=== PATIENT | female | born 1950 | race Caucasian/White ===

== ENCOUNTER 2017-02-07 09:42 | Inpatient (IN) | payer BC, MEDICARE ==
[2017-02-07] MEDS ORDERED: methylPREDNISolone 125 MG* 2 ML VIAL IV ONE (09:44)
[2017-02-07] MEDS: Albuterol/Ipratropium NEB.SOL* Albuterol 2.5 MG/Ipratropium 0.5 MG 3 ML INH SCH ×6 (10:05→23:57)
[2017-02-07 10:13] LABS: Hematocrit 35 % (35-47); Hemoglobin 10.6 g/dl (12.0-16.0); Mean Corpuscular HGB Conc 30 g/dl (31-36); Mean Corpuscular Hemoglobin 22 pg (27-31); Mean Platelet Volume 9 um3 (7.4-10.4); Red Blood Count 4.92 10^6/ul (4.0-5.4); Red Cell Distribution Width 20 % (10.5-15); White Blood Count 9.3 10^3/ul (3.5-10.8)
[2017-02-07 10:17] LABS: Comments Flag Yes
[2017-02-07 10:18] LABS: Mean Corpuscular Volume 72 fL (80-97)
[2017-02-07 10:18] LABS: FIO2 5
[2017-02-07 10:21] LABS: PCO2 Arterial 68 mmHg (35-45)
[2017-02-07 10:29] LABS: Albumin 3.5 g/dL (3.2-5.2); BUN/Creatinine Ratio 59.7 (8-20); C Reactive Protein 112.63 mg/L (< 5.00); Calcium 9.3 mg/dL (8.6-10.3); EGFR African American 123.9 (>60); EGFR Non-African American 96.3 (>60); Globulin 3.3 g/dL (2-4); Potassium 4.6 mmol/L (3.5-5.0); Total Bilirubin 0.3 mg/dL (0.2-1.0); Total Protein 6.8 g/dL (6.4-8.9)
[2017-02-07 10:31] LABS: Troponin I 0.03 ng/mL (<0.04)
[2017-02-07] MEDS ORDERED: Albuterol 2.5 MG/3 ML NEB.SOL* (0.083%) INH PRN (11:26)
[2017-02-07] MEDS ORDERED: NS 0.9% 1000 ML* 2,000 ML IV ONE (11:26)
[2017-02-07] MEDS ORDERED: Acetaminophen TAB* 325 MG PO PRN (11:26)
[2017-02-07] MEDS ORDERED: Ondansetron INJ* 2 MG/ML VIAL IV PRN (11:26)
[2017-02-07] MEDS ORDERED: NS 0.9% 1000 ML* 1,000 ML IV SCH (11:30)
[2017-02-07] MEDS ORDERED: cefTRIAXone(*) 1 GM ADVAN/BAG ONE (11:34)
[2017-02-07] MEDS: cefTRIAXone VIAL(*) 1,000 MG in NS 0.9% 50 ML* 50 ML IVPB SCH (11:38)
--- NOTE | 2017-02-07 11:46 | RAD ---
INDICATION: Short of breath COMPARISON: June 24, 2015 TECHNIQUE: An AP portable view obtained at 1103 hours is submitted. FINDINGS: Bones/Soft Tissues: There are no acute bony findings. Cardiomediastinal: The cardiomediastinal silhouette is normal. Lungs: There are no infiltrates. There is mild hyperinflation Pleura: There are no pleural effusions. Other: None IMPRESSION: HYPERINFLATION. NO ACTIVE DISEASE.
[2017-02-07 11:49] LABS: EPAP 6; FIO2 40; IPAP 14
[2017-02-07 12:01] LABS: PCO2 Arterial 72 mmHg (35-45)
[2017-02-07] MEDS ORDERED: Morphine INJ* 4 MG/ML 1 ML CARPUJECT IV ONE (12:09)
[2017-02-07] MEDS ORDERED: LORazepam INJ* 2 MG/ML 1 ML VIAL IV PUSH ONE (14:19)
--- NOTE | 2017-02-07 14:19 | PN ---
Progress Note - Progress Note Date of Service: 02/07/17 Note: CRITICAL CARE MEDICINE Date: 02/07/17 Time: 1300 Patient seen and discussed with INSTRUCTOR PRIVATE. Agree with DIONISIO Cruz's findings and assessment. Pt states she has felt run down for about a week. Thought she might have the flu. No home O2. still smokes. Lives with family and no one else sick. Did feel some chills at home. no fever. nonproductive cough. no cp. PHYSICAL EXAM: Vital Signs: Reviewed. Neurologic: awake, communiating. mild distress HEENT: pupils equal. Sclera anicteric. Noninjected. mm dry. Trachea midline. Cardiovascular: S1 S2 tachy Respiratory: soft wheezes bl; does have egophony at left base Abdomen: Soft, nt. No r/g/r. Extremities: Warm. thin. Access: piv LABS: Reviewed. IMAGING: Reviewed. MEDICATIONS: Reviewed. ASSESSMENT/PLAN: 66F Acute hypoxic and hypercarbic resp failure - bipap. morphine early to allow exhalation phase. steroids, nebs. Copd exac - Likely viral trigger; need a few hours on bipap to allow time for steroids to work. Tx for cap on admission - tx for sepsis associated with this, but not dysregulated sepsis at this point. flu neg. Mildly intravsascular dry and repleted with fluids in ED. Pt expressed understanding. Further plan and care per INSTRUCTOR PRIVATE's note and orders. Supportive and preventative care as ordered. Disposition: ICU, Level 2 Code Status: Full Critical Care Time: 35 min Amanda Galvan DO
[2017-02-07] MEDS ORDERED: LORazepam INJ* 2 MG/ML 1 ML VIAL IV PUSH PRN (14:20)
--- NOTE | 2017-02-07 15:12 | HP ---
CC: Dr. Leary * HISTORY AND PHYSICAL: DATE OF ADMISSION: 02/07/17 PRIMARY CARE PROVIDER: Dr. Leary. ATTENDING PHYSICIAN WHILE IN THE HOSPITAL: Dr. Gerry Galvan * (Report dictated by Marshal Cruz NP). CHIEF COMPLAINT: 1. Cough. 2. Shortness of breath. HISTORY OF PRESENT ILLNESS: Mrs. Carpenter is a 66-year-old female patient. She has a history of COPD. She is still smoking. She has a history of ulcerative colitis, history of SBO in the past, and a history of arthritis. She states that over the last week she started out feeling congested, having runny nose, feeling like she had a cold, but over the last week she has had progressive worsening shortness of breath, worsening cough, she has been bringing up clear to white sputum at times. She denies any weight gain or any swelling of the lower extremities. She says that her appetite has been decreased over the last few days. She denies having any chest pain. She said she has been more short of breath, particularly with exertion and even at rest. She was concerned because her symptoms just were not getting any better. So, she decided to come into our ER today to be evaluated. She denies any chest pain. She says that she did not have any chills and no recent sick contacts, and denies feeling as if she has been aching all over. She came into the ED. It was noted, when she came in, she appeared to be tachypneic in the 30s. Her O2 sats were 94% on 5 L. She was placed on BiPAP due to her work of breathing. She was noted to have a fever here. She was noted to have a left shift on a differential and there was concern for COPD exacerbation and we were asked to evaluate for admission. PAST MEDICAL HISTORY: Significant for: 1. COPD. 2. Ulcerative colitis. 3. History of SBO in the past. 4. Arthritis. PAST SURGICAL HISTORY: 1. The patient has had an ileostomy. 2. She has had a total colectomy. 3. She has had knee surgery. MEDICATIONS: The home meds according to the list that she provided includes: 1. Trazodone 50 mg at bedtime as needed. 2. Symbicort 2 puffs inhaled b.i.d. 3. Ventolin 2 puffs inhaled every 4 hours as needed. ALLERGIES TO MEDICATIONS: Include no known drug allergies. FAMILY HISTORY: Her mother had a history of diabetes and hypertension and history of colon cancer. The father had a history of emphysema. SOCIAL HISTORY: She is still smoking about a pack a day. She has been smoking for about 50 years. She does not drink alcohol. She lives with her children. Surrogate decision maker is her daughter. REVIEW OF SYSTEMS: There was no documented fever at home. There is one here today. She denied having any double vision, no ear discharge. She denies having any rhinorrhea. No sore throat. No thyroid enlargement. She denied having any chest pain. There was no orthopnea. Dyspnea on exertion and sometimes dyspnea at rest. There was no abdominal pain. No nausea. No vomiting. No dysuria. No frequency. There was no seizure. No loss of consciousness. No pruritus and no skin ulcerations. Review of 14 systems completed, all others are negative. PHYSICAL EXAMINATION GENERAL: At this time, Mrs. Carpenter is a 66-year-old female patient. She is sitting in the ER stretcher. She does appear to be in a [id number] amount of respiratory distress. VITAL SIGNS: Blood pressure 107/71, pulse 111, respirations 29, O2 sat 93%, she is on 40% on a BiPAP, and her temperature is 101.5. HEENT: Head atraumatic and normocephalic. Eyes: EOMs are intact. Sclerae are anicteric and not pale. Throat: Oral mucosa appears to be dry. No oropharyngeal erythema. NECK: Supple. LUNGS: She was noted to be wheezing throughout. She had some rhonchi in the upper lobe. She had equal diaphragmatic expansion. HEART: Sounds S1, S2. Regular rate and rhythm. She is tachycardic. ABDOMEN: Her abdomen was soft and flat. She had an ileostomy. Again, the stoma does not appear to be dusky. EXTREMITIES: Pulses were 2+ throughout. She has no peripheral edema. She is moving all 4 extremities with 5/5 strength. NEUROLOGIC: She is awake, alert, oriented x3. Tongue midline. [place] Press Operator are equal. She had no gross focal deficits. SKIN: Intact. DIAGNOSTIC STUDIES/LAB DATA: WBC of 9.3, RBC of 4.92, hemoglobin 10.6, hematocrit 35, platelet count of 160. Blood gas: pH is 7.27, pCO2 is 68, the pO2 is 81, and the bicarb was 27. The sodium was 136, potassium of 4.6, chloride of 100, bicarb is 30, BUN 36, creatinine 0.62, glucose 163. Her lactate is 0.8, calcium 9.3. Total bili 0.3, AST 22, ALT 11, alk phos 58. CK 163, CK-MB 6.4. Troponin 0.03. CRP was 112 and albumin was 3.5. Serology was negative for flu. She had an EKG obtained today and on my review appears to be in sinus tachycardia at a rate of 117. She did have, what appears to be, a PV. There does appear to be some artifact, but there was no gross ST elevations or T-wave inversions. No previous EKG for comparison. She had a chest x-ray obtained today, awaiting official report. On my read, I do not appreciate any obvious infiltrate. She may have something retrocardiac, but no gross infiltrates noted on this one view. No signs of pulmonary edema. Old medical records were reviewed. ASSESSMENT AND PLAN: Mrs. Carpenter is a 66-year-old female patient coming into the ED today with complaints of cough, progressive worsening shortness of breath over the last week, now found to be febrile and found to have what appears to be a left shift on her differential. She will be admitted under inpatient status for: 1. Chronic obstructive pulmonary disease exacerbation with possible underlying pneumonia and signs of sepsis as evidenced by she is tachycardic, she was tachypneic, and she had a fever of 101.5 here. Plan: At this point she had blood cultures already. Her first lactic was normal. We will get another one at 2:30 today. I will give her 2 L of fluid wide open now, then normal saline at 100 an hour and we will start her on azithromycin and Rocephin. This still could be a viral illness, but again given the fact that she has chronic obstructive pulmonary disease and she required BiPAP, I think she requires antibiotics given she was febrile and has a left shift, and her CRP is quite elevated. I will continue the BiPAP. I did touch base with our yield improvement engineer, who will be evaluating the patient. I am going to get her on aggressive pulmonary toileting and further evaluation. In addition to this, place her on nebs, steroids and try to get a sputum culture and we will get Legionella antigen and Strep pneumoniae antigen. 2. Chronic obstructive pulmonary disease with exacerbation. Again we will put her on steroids, nebs, aggressive pulmonary toileting, and we will continue the BiPAP. We will try to liberate her from this, may be down to Vapotherm today and then slowly wean her off as the nebs and steroids start to help with bronchodilation, and we will continue to follow. 3. History of ulcerative colitis and history of small bowel obstruction. At this point, she does appear to be dehydrated. So, I will be aggressive with the fluids, normal saline 2 L now, then at 100 an hour. She is n.p.o., put her on clears once I know her respiratory status is stable. In terms of her ulcerative colitis, it appears to be stable at this point. 4. Arthritis. Continue with supportive care. 5. DVT prophylaxis. She is high risk. I did place her on heparin subcu. 6. Code status: Full code. 7. Fluids, electrolytes, and nutrition: She is n.p.o. Once we can liberate her from BiPAP, I will consider starting her on clears to a regular diet. TIME SPENT: Time spent on the admission was approximately 60 minutes. Greater than half the time was spent face to face with the patient obtaining my history and physical, the other half time spent going over the plan of care with the patient, implementing plan of care. I did discuss the plan of care with my attending, Dr. Galvan, he is in agreement. MARSHAL CRUZ, DIONISIO [id number]/[facility] #: [id number] SVITLANA
[2017-02-07] MEDS: Heparin VIAL(*) 5000 UNITS/ML VIAL (FIVE THOUSAND) SUBCUT SCH ×2 (17:00→21:12)
--- NOTE | 2017-02-07 17:24 | ED ---
Ruben Bernal Angela, scribed for Pilo Mendez MD on 02/07/17 at 1041 . Shortness of Breath - HPI Summary HPI Summary: This pt is a 66 y/o female presenting to [facility] c/o SOB for 2 days. Pt reports she had the flu for the last 1 week, which has worsened over the last 2 days. Pt c/o cough, sore throat and increasing SOB. EMS state her O2 saturations were in the 50s upon arrival to her home. She is not on home oxygen. Per EMS, Pt placed on 4L NC which increased her saturation to the 90s. Per nurse's note, upon arrival O2 saturation 94% on 5L NC. PMHx includes COPD. Pt is a current smoker. - History of Current Complaint Time Seen by Provider: 02/07/17 09:43 Hx Obtained From: Patient Onset/Duration: Lasting Days, Still Present Timing: Constant Dyspnea At: Rest Alleviating Factors: EMS Tx, Oxygen Associated Signs & Symptoms: Cough (Nonproductive) - Allergy/Home Medications Allergies/Adverse Reactions: Allergies Allergy/AdvReac Type Severity Reaction Status Date / Time No Known Allergies Allergy Verified 08/24/15 08:37 PMH/Surg Hx/FS Hx/Imm Hx Respiratory History: Reports: Hx Chronic Obstructive Pulmonary Disease (COPD) GI History: Reports: Other GI Disorders - ulcerative colitis, s/p colostomy at age 20 - Cancer History Hx Chemotherapy: No Hx Radiation Therapy: No - Surgical History Surgery Procedure, Year, and Place: colostomy 1971 Infectious Disease History: No Infectious Disease History: Denies: Traveled Outside the [place] in Last 30 Days - Family History Known Family History: Positive: Hypertension - mother, Diabetes - mother, Other - Mother: colon CA. Father: emphysema. - Social History Alcohol Use: None Substance Use Type: Reports: None Smoking Status (MU): Heavy Every Day Tobacco Smoker Type: Cigarettes Amount Used/How Often: 1/2 ppd Have You Smoked in the Last Year: Yes Review of Systems Negative: Fever, Chills Eyes: Negative Positive: Sore Throat Positive: Shortness Of Breath, Cough Skin: Negative Neurological: Negative All Other Systems Reviewed And Are Negative: Yes Physical Exam - Summary Physical Exam Summary: VITAL SIGNS: Reviewed. GENERAL: Patient is a well-developed and nourished female who is lying comfortable in the stretcher. HEAD AND FACE: No signs of trauma. No ecchymosis, hematomas or skull depressions. No sinus tenderness. EYES: PERRLA, EOMI x 2, No injected conjunctiva, no nystagmus. EARS: Hearing grossly intact. Ear canals and tympanic membranes are within normal limits. MOUTH: Oropharynx within normal limits. NECK: Supple, trachea is midline, no adenopathy, no JVD, no carotid bruit, no c- spine tenderness, neck with full ROM. CHEST: Symmetric, no tenderness at palpation LUNGS: Pt has decreased breath sounds. CVS: Regular rate and rhythm, S1 and S2 present, no murmurs or gallops appreciated. ABDOMEN: Soft, non-tender. No signs of distention. No rebound no guarding, and no masses palpated. Bowel sounds are normal. EXTREMITIES: FROM in all major joints, no edema, no cyanosis or clubbing. NEURO: Alert and oriented x 3. No acute neurological deficits. Speech is normal and follows commands. SKIN: Dry and warm Triage Information Reviewed: Yes Vital Signs On Initial Exam: Initial Vitals Temp Pulse Resp BP Pulse Ox 101.5 F 115 30 131/52 94 02/07/17 09:49 02/07/17 09:49 02/07/17 09:49 02/07/17 09:49 02/07/17 09:49 Vital Signs Reviewed: Yes - [place] Coma Scale Coma Scale Total: 15 Diagnostics - Vital Signs Vital Signs Temp Pulse Resp BP Pulse Ox 02/07/17 10:23 112 31 129/52 93 02/07/17 10:05 116 38 95 02/07/17 10:00 116 31 94 02/07/17 09:56 114 32 94 02/07/17 09:49 101.5 F 115 30 131/52 94 - Laboratory Lab Results: Lab Results 02/07/17 02/07/17 02/07/17 Range/Units 10:01 10:01 10:13 WBC 9.3 (3.5-10.8) 10^3/ul RBC 4.92 (4.0-5.4) 10^6/ul Hgb 10.6 L (12.0-16.0) g/dl Hct 35 (35-47) % MCV 72 L (80-97) fL MCH 22 L (27-31) pg MCHC 30 L (31-36) g/dl RDW 20 H (10.5-15) % Plt Count 160 (150-450) 10^3/ul MPV 9 (7.4-10.4) um3 Neut % (Auto) 86.1 H (38-83) % Lymph % (Auto) 5.0 L (25-47) % [place] % (Auto) 8.3 (1-9) % Eos % (Auto) 0 (0-6) % Baso % (Auto) 0.6 (0-2) % Absolute Neuts (auto) 8.0 H (1.5-7.7) 10^3/ul Absolute Lymphs (auto) 0.5 L (1.0-4.8) 10^3/ul Absolute Monos (auto) 0.8 (0-0.8) 10^3/ul Absolute Eos (auto) 0 (0-0.6) 10^3/ul Absolute Basos (auto) 0.1 (0-0.2) 10^3/ul Absolute Nucleated RBC 0.01 10^3/ul Nucleated RBC % 0.1 Patient Temperature Not Reportable ABG pH 7.27 L (7.35-7.45) ABG pH (Temp Correct) Not Reportable ABG pCO2 68 H (35-45) mmHg ABG pCO2 (Temp Corrct Not Reportable ABG pO2 81 (80-100) mmHg ABG pO2 (Temp Correct Not Reportable ABG HCO3 27.2 (19-31) mmol/L ABG O2 Saturation 97.4 (95-98) % ABG Base Excess 3.0 H (-2.0-2.0) Respiration Rate Not Reportable O2 Delivery Device n/c Ventilator Type Not Reportable Vent Mode Not Reportable FiO2 5 Inspiratory Time Not Reportable PEEP Not Reportable Pressure Support Not Reportable Pressure Control Not Reportable EPAP Not Reportable IPAP Not Reportable BiPAP Not Reportable Lactic Acid 0.8 (0.5-2.0) mmol/L Result Diagrams: 02/07/17 10:01 02/07/17 10:01 Lab Statement: Any lab studies that have been ordered have been reviewed, and results considered in the medical decision making process. - Radiology Chest XR Xray Interpretation: Positive (See Comments) - IMPRESSION: Hyperinflation. No active disease. ED physician has reviewed this radiology report and agrees. Radiology Interpretation Completed By: Radiologist - EKG 0985 Cardiac Rate: Tachycardia EKG Rhythm: Sinus Rhythm - at 117 bpm EKG Interpretation: No ST elevation Course/Dx - Course Assessment/Plan: This pt is a 66 y/o female presenting to [facility] c/o SOB for 2 days. Pt reports she had the flu for the last 1 week, which has worsened over the last 2 days. Pt c/o cough, sore throat and increasing SOB. EMS state her O2 saturations were in the 50s upon arrival to her home. She is not on home oxygen. Per EMS, Pt placed on 4L NC which increased her saturation to the 90s. Per nurse's note, upon arrival O2 saturation 94% on 5L NC. PMHx includes COPD. Pt is a current smoker. Test results without any significant abnormalities, except for BUN of 37, CRP of 112.6, ABG pH 7.23, pCO2 of 68, pO2 of 81, O2 saturation of 97.4. Chest XR shows Hyperinflation. No active disease. In the ED course the pt was given IV fluids, solu-Medrol, Duonebs, and was placed on Bipap. At this point I discussed the test results and findings with Dr. Paris, hospitalist, who accepted the pt for admission. Pt is hemodynamically stable, alert and oriented x3. - Diagnoses Differential Diagnosis/HQI/PQRI: Positive: Asthma, CHF, COPD Exacerbation, Pneumonia Provider Diagnoses: COPD exacerbation, Hypercapnia - Physician Notifications Discussed Care of Patient With: Ines Paris Time Discussed With Above Provider: 10:53 Instructed by Provider To: Other - I discussed pt care with Dr. Paris, who has agreed to admit the pt. Discharge - Discharge Plan Condition: Stable Disposition: ADMITTED TO [facility] documentation as recorded by the Ruben tai Angela accurately reflects the service I personally performed and the decisions made by , Pilo Mendez MD.
[2017-02-07] MEDS: Azithromycin IV(*) 500 MG in D5W 250 ML BAG* 250 ML IVPB SCH ×3 (17:25→17:29)
[2017-02-07] MEDS: Azithromycin IV(*) 500 MG in NS 0.9% 250 ML* 250 ML IVPB SCH (17:32)
[2017-02-07] MEDS: methylPREDNISolone 125 MG* 2 ML VIAL IV SCH (19:01)
[2017-02-07] MEDS: Mometasone/Formoter 200/5 MDI INH SCH (19:55)
[2017-02-07 20:09] LABS: Urine Bacteria Absent (Absent); Urine Bilirubin Negative (Negative); Urine Glucose Negative (Negative); Urine Nitrite Negative (Negative)
[2017-02-07] MEDS: Morphine INJ* 2 MG/ML 1 ML SYRINGE (TWO MG - NEW SYRINGE VERSION) IV PRN (22:09)
[2017-02-07 22:55] LABS: EPAP 10; FIO2 60; IPAP 18
[2017-02-07 23:02] LABS: PCO2 Arterial 85 mmHg (35-45)
[2017-02-07] MEDS ORDERED: Succinylcholine* 20 MG/ML 10 ML VIAL ONE ×2 (23:16→23:34)
[2017-02-07] MEDS ORDERED: Etomidate* 2 MG/ML 20 ML VIAL (40 MG) ONE (23:34)
[2017-02-07] MEDS ORDERED: Propofol* 100 ML ONE (23:41)
--- NOTE | 2017-02-07 23:49 | PN ---
Progress Note - Progress Note Date of Service: 02/07/17 Note: Nursing reported increased lethargy on BiPap. Repeat blood gas shows worsening hypercapneic respiratory failure. She is a full code and so intubation was performed, please see separate note.
--- NOTE | 2017-02-07 23:56 | PN ---
Progress Note - Progress Note Date of Service: 02/07/17 Note: INTUBATION PROCEDURE NOTE INDICATION: progressive hypercapneic respiratory failure failed BiPap PHYSICIAN: Lorenzo Cee II, MD CONSENT: The procedure was performed emergently and the permission was implied because of the emergent nature. PROCUDURE SUMMARY: My hands were washed immediately prior to the procedure. [place] precautions were practiced. The patient was on a harness and bag inspector including continuous pulse oximetry. Integrity of endotracheal tube balloon was demonstrated. Rapid sequence intubation was conducted. The patient received 20mg etomidate & 100mg succinyl choline for adequate paralysis. Using a Glidescope and size 8 endotracheal tube with stylet, the patient was intubated on the first attempt. The stylet was removed and cuff balloon was inflated. Appropriate endotracheal tube position was confirmed by direct visualization of vocal cord passage, fogging of the tube, CO2 colometric indicator and symmetric breath sounds. The tube was secured 22cm at the lips. Post intubation chest x- ray confirmed appropriate placement.
[2017-02-08] MEDS ORDERED: DEXMEDETOMIDINE IVPB SCH (00:19)
[2017-02-08] MEDS ORDERED: D5W IVPB SCH (00:19)
[2017-02-08] MEDS: Propofol* 1000 MG (10 MG/ML 100 ml) @ Per Protocol (in ICU Pyxis) IV SCH ×3 (00:50→14:14)
[2017-02-08] MEDS: methylPREDNISolone 125 MG* 2 ML VIAL IV SCH ×3 (01:31→18:12)
[2017-02-08 01:34] LABS: FIO2 60; Resp Rate 14; Ventilator Volume 400
[2017-02-08 01:40] LABS: PCO2 Arterial 76 mmHg (35-45)
[2017-02-08] MEDS ORDERED: NS 0.9% 1000 ML* 1,000 ML IV ONE (03:45)
[2017-02-08 03:51] LABS: FIO2 55; Resp Rate 20; Ventilator Volume 450
[2017-02-08 03:54] LABS: PCO2 Arterial 57 mmHg (35-45)
[2017-02-08] MEDS: Albuterol/Ipratropium NEB.SOL* Albuterol 2.5 MG/Ipratropium 0.5 MG 3 ML INH SCH ×6 (04:00→23:35)
[2017-02-08] MEDS: Heparin VIAL(*) 5000 UNITS/ML VIAL (FIVE THOUSAND) SUBCUT SCH ×3 (05:26→22:13)
[2017-02-08 07:24] LABS: Hematocrit 27 % (35-47); Hemoglobin 8.1 g/dl (12.0-16.0); Mean Corpuscular HGB Conc 30 g/dl (31-36); Mean Corpuscular Hemoglobin 22 pg (27-31); Mean Platelet Volume 9 um3 (7.4-10.4); Red Blood Count 3.75 10^6/ul (4.0-5.4); Red Cell Distribution Width 20 % (10.5-15); White Blood Count 6.1 10^3/ul (3.5-10.8)
[2017-02-08 07:29] LABS: Comments Flag Yes; Mean Corpuscular Volume 72 fL (80-97)
[2017-02-08 07:39] LABS: BUN/Creatinine Ratio 47.9 (8-20); Calcium 8.4 mg/dL (8.6-10.3); EGFR African American 105.9 (>60); EGFR Non-African American 82.4 (>60); Potassium 4.6 mmol/L (3.5-5.0)
--- NOTE | 2017-02-08 07:41 | RAD ---
HISTORY: Intubation, COPD exacerbation COMPARISONS: February 07, 2017 at 10:57 AM VIEWS: 1: frontal portable view of the chest at 11:45 PM FINDINGS: LINES AND TUBES: An endotracheal tube is noted with the tip overlying the trachea between the clavicles and the mandy. A gastric tube is noted. The tip is below the [id number] of the current examination, but is below the diaphragm. CARDIOMEDIASTINAL SILHOUETTE: The cardiomediastinal silhouette is normal for portable technique. PLEURA: The costophrenic angles are sharp. No pleural abnormalities are noted. LUNG PARENCHYMA: There is hyperinflation. ABDOMEN: The upper abdomen is clear. There is no subphrenic gas. BONES AND SOFT TISSUES: No bone or soft tissue abnormalities are noted. IMPRESSION: LINES AND TUBES ABOVE. NO ACTIVE CARDIOPULMONARY DISEASE.
[2017-02-08] MEDS: cefTRIAXone VIAL(*) 1,000 MG in NS 0.9% 50 ML* 50 ML IVPB SCH (11:00)
--- NOTE | 2017-02-08 11:18 | PN ---
Progress Note - Progress Note Date of Service: 02/08/17 Note: CRITICAL CARE MEDICINE Date: 02/08/17 Time: 1040 SUBJECTIVE: Patient seen and examined. events reviewed with hospitalist overnight. PHYSICAL EXAM: Vital Signs: Reviewed. stable. Neurologic: Rass -4 HEENT: pupils equal. Sclera anicteric. ett in place Cardiovascular: S1 S2 reg Respiratory: soft wheezes bl; sync with vent on vol and changed to pressure Abdomen: Soft, nt. No r/g/r. ostomy stable with mild skin irritation Extremities: Warm. Access: piv LABS: Reviewed. IMAGING: Reviewed. no infiltrate MEDICATIONS: Reviewed. ASSESSMENT: 66F Acute hypoxic and hypercarbic resp failure Copd exac - Likely viral trigger Tx for cap on admission Anemia sec to chronic disease h/o UC; ostomy PLAN: Neurologic: lighten sedation. use precedex >prop and see if she can spon breath. prn morphine Cardiovascular: perfusing. vol status met. Respiratory: co2 corrected and maintaining but needs to awake and see how her phases of resp decide her course. may need a little more time now vented to overcome bronchoscpastic trigger and retention sec to copd exac. again, likely viral but abx for now. Gastrointestinal: start tf later/ sup Renal/Metabolic: f/u lytes. nina Infectious Disease: neg thusfar. C3/azith. flu neg Hematology: stable. Endocrine: steroids. Musculoskeletal: oob soon Psych/Social: will update family Supportive and preventative care as ordered. SUP: H2 VTE prophylaxis: heparin Nina catheter given critical illness, monitoring needs for accurate assessment of MARIAH and KDIGO criteria for critically ill patients and to avoid potential harms of urinary retention, skin breakdown/ulcers. Disposition: ICU Code Status: Full Critical Care Time: 35min Amanda Galvan DO
[2017-02-08] MEDS: DEXMEDETOMIDINE IVPB SCH (12:23)
[2017-02-08] MEDS: D5W IVPB SCH (12:23)
[2017-02-08] MEDS: Azithromycin IV(*) 500 MG in NS 0.9% 250 ML* 250 ML IVPB SCH (12:23)
[2017-02-08] MEDS: Mometasone/Formoter 200/5 MDI INH SCH ×2 (13:24→19:47)
[2017-02-09] MEDS: Propofol* 1000 MG (10 MG/ML 100 ml) @ Per Protocol (in ICU Pyxis) IV SCH ×2 (00:29→03:50)
[2017-02-09] MEDS: Chlorhexidine MOUTHWASH 0.12%* 15 ML UDC SWISH SPIT SCH ×2 (00:33→09:16)
[2017-02-09] MEDS: methylPREDNISolone 125 MG* 2 ML VIAL IV SCH ×2 (02:37→09:16)
[2017-02-09 04:22] LABS: Hematocrit 27 % (35-47); Hemoglobin 8.2 g/dl (12.0-16.0); Mean Corpuscular HGB Conc 31 g/dl (31-36); Mean Corpuscular Hemoglobin 22 pg (27-31); Mean Platelet Volume 10 um3 (7.4-10.4); Red Blood Count 3.77 10^6/ul (4.0-5.4); Red Cell Distribution Width 20 % (10.5-15); White Blood Count 8.3 10^3/ul (3.5-10.8)
[2017-02-09 04:24] LABS: Comments Flag Yes
[2017-02-09 04:25] LABS: Mean Corpuscular Volume 71 fL (80-97)
[2017-02-09 04:39] LABS: BUN/Creatinine Ratio 44.7 (8-20); Blood Urea Nitrogen 34 mg/dL (6-24); CO2 Carbon Dioxide 27 mmol/L (22-32); Calcium 8.5 mg/dL (8.6-10.3); Chloride 108 mmol/L (101-111); EGFR African American 97.9 (>60); EGFR Non-African American 76.1 (>60); Glucose 304 mg/dL (70-100); Phosphorus 2.6 mg/dL (2.5-5.0); Sodium 137 mmol/L (133-145)
[2017-02-09 04:43] LABS: Anion Gap 2 mmol/L (2-11)
[2017-02-09] MEDS: Heparin VIAL(*) 5000 UNITS/ML VIAL (FIVE THOUSAND) SUBCUT SCH ×3 (05:57→22:33)
[2017-02-09] MEDS: Mometasone/Formoter 200/5 MDI INH SCH ×2 (07:25→19:22)
[2017-02-09] MEDS: Albuterol/Ipratropium NEB.SOL* Albuterol 2.5 MG/Ipratropium 0.5 MG 3 ML INH SCH ×5 (07:25→19:22)
[2017-02-09] MEDS: DEXMEDETOMIDINE IVPB SCH (09:21)
[2017-02-09] MEDS: D5W IVPB SCH (09:21)
[2017-02-09] MEDS: cefTRIAXone VIAL(*) 1,000 MG in NS 0.9% 50 ML* 50 ML IVPB SCH (09:49)
--- NOTE | 2017-02-09 10:44 | PN ---
Progress Note - Progress Note Date of Service: 02/09/17 Note: CRITICAL CARE MEDICINE Date: 02/09/17 Time: 845 SUBJECTIVE: Patient seen and examined. PHYSICAL EXAM: Vital Signs: Reviewed. stable. Neurologic: Rass -1; awake, communicating well. denies pain. ready to liberate. HEENT: pupils equal. Sclera anicteric. ett in place Cardiovascular: S1 S2 reg Respiratory: distnat but clear, no wheeze. mv on cpap a bit up ~12lpm Abdomen: Soft, nt. No r/g/r. ostomy stable Extremities: Warm. Access: piv LABS: Reviewed. IMAGING: Reviewed. MEDICATIONS: Reviewed. ASSESSMENT: 66F Acute hypoxic and hypercarbic resp failure Copd exac - Likely viral trigger Tx for cap on admission Anemia sec to chronic disease h/o UC; ostomy PLAN: Neurologic: off sedation other then low dose precedex to help facilitate transition and optimize flows Cardiovascular: perfusing. vol status met. Respiratory: liberate to NC. likely need for bipap, but hopefully can reserve till nocturnal if she can tolerate transition off ppv ok. If not then early bipap prior to decompensation. nebs. Gastrointestinal: off tf. po later. sup Renal/Metabolic: f/u lytes. nina Infectious Disease: Azithro alone. flu neg Hematology: stable. Endocrine: steroid taper. Musculoskeletal: oob today; pt Psych/Social: looking to update family Supportive and preventative care as ordered. SUP: H2 VTE prophylaxis: heparin Nina catheter given critical illness, monitoring needs for accurate assessment of MARIAH and KDIGO criteria for critically ill patients and to avoid potential harms of urinary retention, skin breakdown/ulcers. Disposition: ICU Code Status: Full Critical Care Time: 35min Amanda Galvan DO
[2017-02-09] MEDS: Azithromycin IV(*) 500 MG in NS 0.9% 250 ML* 250 ML IVPB SCH (11:09)
[2017-02-09] MEDS ORDERED: methylPREDNISolone SOD 40 MG* 1 ML VIAL IV SCH (20:00)
[2017-02-09] MEDS: traZODone TAB* 50 MG TAB PO PRN (23:29)
[2017-02-09] MEDS: guaiFENesin/CODIEN 100MG-10MG* 5 ML UDC PO PRN (23:48)
[2017-02-09] MEDS: guaiFENesin/CODIEN 100MG-10MG* 5 ML UDC ONE ×2 (23:53→23:54)
[2017-02-10] MEDS: Albuterol/Ipratropium NEB.SOL* Albuterol 2.5 MG/Ipratropium 0.5 MG 3 ML INH SCH ×4 (02:02→20:29)
[2017-02-10] MEDS: Heparin VIAL(*) 5000 UNITS/ML VIAL (FIVE THOUSAND) SUBCUT SCH ×3 (05:59→22:53)
[2017-02-10 06:05] LABS: Hematocrit 26 % (35-47); Mean Corpuscular HGB Conc 31 g/dl (31-36); Mean Corpuscular Hemoglobin 22 pg (27-31); Mean Platelet Volume 10 um3 (7.4-10.4); Red Blood Count 3.59 10^6/ul (4.0-5.4); Red Cell Distribution Width 21 % (10.5-15); White Blood Count 8.4 10^3/ul (3.5-10.8)
[2017-02-10 06:08] LABS: Comments Flag Yes; Mean Corpuscular Volume 72 fL (80-97)
[2017-02-10] MEDS: Mometasone/Formoter 200/5 MDI INH SCH ×2 (07:32→20:27)
[2017-02-10] MEDS: predniSONE TAB* 20 MG PO SCH (09:20)
--- NOTE | 2017-02-10 11:10 | PN ---
Progress Note - Progress Note Date of Service: 02/10/17 Note: CRITICAL CARE MEDICINE Date: 02/10/17 Time: 845 SUBJECTIVE: Patient seen and examined. PHYSICAL EXAM: Vital Signs: Reviewed. stable. Neurologic: well HEENT: pupils equal. Sclera anicteric. Cardiovascular: S1 S2 reg Respiratory: distant but clear, no wheeze. 4L, sat 88% Abdomen: Soft, nt. No r/g/r. ostomy stable Extremities: Warm. LABS: Reviewed. IMAGING: Reviewed. MEDICATIONS: Reviewed. ASSESSMENT: 66F Acute hypoxic and hypercarbic resp failure Copd exac - Likely viral trigger Tx for cap on admission Anemia sec to chronic disease h/o UC; ostomy PLAN: Neurologic: stable. Cardiovascular: perfusing. vol status met. Respiratory: NC, seems to be ok with sats 88%. Needs time however and eval ultimately for home O2. Would utilize bipap again tonight and should f/u with pulm outpt. copd tx, nebs. Gastrointestinal: po. Renal/Metabolic: f/u lytes. kelle is out Infectious Disease: Azithro alone x 5day course. flu neg Hematology: stable. Endocrine: steroid taper. Musculoskeletal: oob Psych/Social: pt expresses understanding. desires nicotine td. Supportive and preventative care as ordered. SUP: H2 VTE prophylaxis: heparin Disposition: floor Code Status: Full Critical Care Time: 25min Amanda Galvan DO
[2017-02-10] MEDS: Azithromycin TAB* 250 MG PO SCH (12:07)
[2017-02-10] MEDS: DEXMEDETOMIDINE IVPB SCH (12:34)
[2017-02-10] MEDS: Chlorhexidine MOUTHWASH 0.12%* 15 ML UDC SWISH SPIT SCH (12:34)
[2017-02-10] MEDS: D5W IVPB SCH (12:34)
[2017-02-10] MEDS: Propofol* 1000 MG (10 MG/ML 100 ml) @ Per Protocol (in ICU Pyxis) IV SCH (12:35)
[2017-02-10] MEDS: Nicotine PATCH 14 MG/24 HR* PATCH TRANSDERM SCH (13:39)
[2017-02-10] MEDS: guaiFENesin/CODIEN 100MG-10MG* 5 ML UDC PO PRN (20:20)
[2017-02-10] MEDS: Benzonatate CAP* 100 MG PO PRN (20:20)
[2017-02-10] MEDS: traZODone TAB* 50 MG TAB PO PRN (23:14)
[2017-02-11] MEDS: Albuterol/Ipratropium NEB.SOL* Albuterol 2.5 MG/Ipratropium 0.5 MG 3 ML INH SCH ×4 (02:32→19:41)
[2017-02-11] MEDS: Nicotine Patch Removal NOTE FOLLOW UP SCH (05:50)
[2017-02-11] MEDS: Heparin VIAL(*) 5000 UNITS/ML VIAL (FIVE THOUSAND) SUBCUT SCH ×3 (05:50→21:51)
[2017-02-11] MEDS: Mometasone/Formoter 200/5 MDI INH SCH ×2 (07:28→19:40)
[2017-02-11] MEDS: Azithromycin TAB* 250 MG PO SCH (08:51)
[2017-02-11] MEDS: predniSONE TAB* 20 MG PO SCH (08:51)
[2017-02-11] MEDS: Nicotine PATCH 14 MG/24 HR* PATCH TRANSDERM SCH (08:52)
[2017-02-11] MEDS: guaiFENesin/CODIEN 100MG-10MG* 5 ML UDC PO PRN (08:55)
[2017-02-11] MEDS: Morphine INJ* 2 MG/ML 1 ML SYRINGE (TWO MG - NEW SYRINGE VERSION) IV PRN ×4 (13:15→21:51)
--- NOTE | 2017-02-11 15:57 | PN ---
Subjective Date of Service: 02/11/17 Interval History: Patient feeling a bit better. Still has VILLAGRAN going to bathroom. At baseline lives w/ family, does not have home O2 or CPAP. Cough is mild, dry. Family History: Unchanged from Admission Social History: Unchanged from Admission Past Medical History: Unchanged from Admission Objective Active Medications: Acetaminophen (Tylenol Tab*) 650 mg PO Q4H PRN PRN Reason: FEVER/PAIN Albuterol (Ventolin 2.5 Mg/3 Ml Neb.Michelle*) 2.5 mg INH Q2H PRN PRN Reason: SOB/WHEEZING Last Admin: 02/09/17 16:35 Dose: 2.5 mg Albuterol/Ipratropium (Duoneb (Albuterol 2.5 Mg/Ipratropium 0.5 Mg)) 1 neb INH [id number] AWAKE [facility] Last Admin: 02/11/17 13:36 Dose: 1 neb Azithromycin (Zithromax Tab*) 500 mg PO DAILY [facility] Stop: 02/12/17 09:01 Last Admin: 02/11/17 08:51 Dose: 500 mg Benzonatate (Tessalon Cap*) 100 mg PO TID PRN PRN Reason: COUGH Last Admin: 02/10/17 20:20 Dose: 100 mg Guaifenesin/Codeine Phosphate (Robitussin Ac 100mg-10mg*) 5 ml PO Q4H PRN PRN Reason: COUGH Last Admin: 02/11/17 08:55 Dose: 5 ml Heparin Sodium (Porcine) (Heparin Vial(*)) 5,000 units SUBCUT Q8HR [facility] Last Admin: 02/11/17 13:16 Dose: 5,000 units Mometasone Furoate/Formoterol Fumar (Dulera 200/5 Mdi*) 2 puff INH BID [facility] Last Admin: 02/11/17 07:28 Dose: 2 puff Morphine Sulfate (Morphine Inj (Syringe)*) 2 mg IV Q2H PRN PRN Reason: PAIN Last Admin: 02/11/17 13:15 Dose: 2 mg Nicotine (Nicotine Patch 14 Mg/24 Hr*) 1 patch TRANSDERM DAILY [facility] Last Admin: 02/11/17 08:52 Dose: 1 patch Ondansetron HCl (Zofran Inj*) 4 mg IV Q6H PRN PRN Reason: NAUSEA Pharmacy Profile Note (Nicotine Patch Removal Note*) 1 note FOLLOW UP 0600 [facility] Last Admin: 02/11/17 05:50 Dose: 1 note Prednisone (Deltasone Tab*) 20 mg PO DAILY [facility] Last Admin: 02/11/17 08:51 Dose: 20 mg Trazodone HCl (Desyrel Tab*) 50 mg PO BEDTIME PRN PRN Reason: INSOMNIA Last Admin: 02/10/17 23:14 Dose: 50 mg Vital Signs - 8 hr 02/11/17 02/11/17 02/11/17 08:00 08:03 12:13 Temperature 36.7 C 36.9 C Pulse Rate 93 93 Respiratory 18 20 19 Rate Blood Pressure 130/58 127/50 (mmHg) O2 Sat by Pulse Oximetry 02/11/17 02/11/17 02/11/17 13:15 14:35 15:31 Temperature 37.1 C Pulse Rate 96 Respiratory 20 16 22 Rate Blood Pressure 140/52 (mmHg) O2 Sat by Pulse 92 Oximetry Oxygen Devices in Use Now: Nasal Cannula Appearance: no resp distress Eyes: No Scleral Icterus Ears/Nose/Mouth/Throat: NL Teeth, Lips, Gums Neck: NL Appearance and Movements; NL JVP Respiratory: - - diminished, rales at bases bilat Cardiovascular: NL Sounds; No Murmurs; No JVD Abdominal: No Hepatosplenomegaly, - - tender epigastric Lymphatic: No Cervical Adenopathy Neurological: Alert and Oriented x 3 Lines/Tubes/Other Access: Clean, Dry and Intact Peripheral IV Nutrition: Taking PO's Result Diagrams: 02/10/17 05:30 02/09/17 05:10 Additional Lab and Data: Lab Results 02/07/17 02/07/17 02/07/17 Range/Units 10:01 10:01 10:13 WBC 9.3 (3.5-10.8) 10^3/ul RBC 4.92 (4.0-5.4) 10^6/ul Hgb 10.6 L (12.0-16.0) g/dl Hct 35 (35-47) % MCV 72 L (80-97) fL MCH 22 L (27-31) pg MCHC 30 L (31-36) g/dl RDW 20 H (10.5-15) % Plt Count 160 (150-450) 10^3/ul MPV 9 (7.4-10.4) um3 Neut % (Auto) 86.1 H (38-83) % Lymph % (Auto) 5.0 L (25-47) % Sierra % (Auto) 8.3 (1-9) % Eos % (Auto) 0 (0-6) % Baso % (Auto) 0.6 (0-2) % Absolute Neuts (auto) 8.0 H (1.5-7.7) 10^3/ul Absolute Lymphs (auto) 0.5 L (1.0-4.8) 10^3/ul Absolute Monos (auto) 0.8 (0-0.8) 10^3/ul Absolute Eos (auto) 0 (0-0.6) 10^3/ul Absolute Basos (auto) 0.1 (0-0.2) 10^3/ul Absolute Nucleated RBC 0.01 10^3/ul Nucleated RBC % 0.1 Patient Temperature Not Reportable ABG pH 7.27 L (7.35-7.45) ABG pH (Temp Correct) Not Reportable ABG pCO2 68 H (35-45) mmHg ABG pCO2 (Temp Corrct Not Reportable ABG pO2 81 (80-100) mmHg ABG pO2 (Temp Correct Not Reportable ABG HCO3 27.2 (19-31) mmol/L ABG O2 Saturation 97.4 (95-98) % ABG Base Excess 3.0 H (-2.0-2.0) Respiration Rate Not Reportable O2 Delivery Device n/c Ventilator Type Not Reportable Vent Mode Not Reportable FiO2 5 Inspiratory Time Not Reportable PEEP Not Reportable Pressure Support Not Reportable Pressure Control Not Reportable EPAP Not Reportable IPAP Not Reportable BiPAP Not Reportable Lactic Acid 0.8 (0.5-2.0) mmol/L Microbiology and Other Data: Microbiology 02/08/17 11:45 Gram Stain - Final Sputum Sputum Culture - Final YEAST 02/07/17 19:58 Legionella Urinary Antigen - Final Urine Negative Legionella Streptococcus pneumoniae Ag Screen - Final Negative S. pneumo Antigen 02/07/17 17:25 Nasal Screen MRSA (PCR)(GILBERT) - Final Nasal Mrsa Negative Assess/Plan/Problems-Billing Assessment: 66 year old woman with COPD, here with hypercapneic and hypoxic respiratory failure, ICU stay, now recovering. - Patient Problems (1) COPD with exacerbation Current Visit: Yes Status: Acute Priority: High Code(s): J44.1 - CHRONIC OBSTRUCTIVE PULMONARY DISEASE W (ACUTE) EXACERBATION SNOMED Code(s): 342328588967958 Comment: -COPD exacerbation responding to steroid, antibiotics, nebulizers -respiratory failure is better compensated (2) Anemia Current Visit: Yes Status: Acute Priority: Medium Code(s): D64.9 - ANEMIA , UNSPECIFIED SNOMED Code(s): 062561165 Comment: -will initiate anemia workup for tomorrow. -anemia may contribute to dyspnea (3) DVT prophylaxis Current Visit: Yes Status: Chronic Priority: Low Code(s): TTR1219 - SNOMED Code(s): 597533679 Comment: SC heparin
[2017-02-12] MEDS: Morphine INJ* 2 MG/ML 1 ML SYRINGE (TWO MG - NEW SYRINGE VERSION) IV PRN ×5 (00:34→13:20)
[2017-02-12] MEDS: Albuterol/Ipratropium NEB.SOL* Albuterol 2.5 MG/Ipratropium 0.5 MG 3 ML INH SCH ×4 (01:14→19:32)
[2017-02-12] MEDS: guaiFENesin/CODIEN 100MG-10MG* 5 ML UDC PO PRN ×2 (04:15→20:15)
[2017-02-12] MEDS: Heparin VIAL(*) 5000 UNITS/ML VIAL (FIVE THOUSAND) SUBCUT SCH ×3 (05:09→20:14)
[2017-02-12] MEDS: Nicotine Patch Removal NOTE FOLLOW UP SCH (05:10)
[2017-02-12 05:38] LABS: Comments Flag Yes; Hematocrit 25 % (35-47); Hemoglobin 7.5 g/dl (12.0-16.0); Mean Corpuscular HGB Conc 30 g/dl (31-36); Mean Corpuscular Hemoglobin 22 pg (27-31); Mean Corpuscular Volume 71 fL (80-97); Mean Platelet Volume 9 um3 (7.4-10.4); Red Blood Count 3.51 10^6/ul (4.0-5.4); Red Cell Distribution Width 21 % (10.5-15); White Blood Count 7.6 10^3/ul (3.5-10.8)
[2017-02-12 05:39] LABS: Add Diff/Slide Review? Slide Review Added
[2017-02-12 05:56] LABS: Calcium 9.1 mg/dL (8.6-10.3); EGFR African American 148.4 (>60); EGFR Non-African American 115.4 (>60); Potassium 4.2 mmol/L (3.5-5.0)
[2017-02-12 06:49] LABS: Hypochromasia 1+; Microcytosis 2+
[2017-02-12] MEDS: Mometasone/Formoter 200/5 MDI INH SCH ×2 (07:50→19:31)
[2017-02-12] MEDS: predniSONE TAB* 20 MG PO SCH (08:09)
[2017-02-12] MEDS: Azithromycin TAB* 250 MG PO SCH (08:09)
[2017-02-12] MEDS: Nicotine PATCH 14 MG/24 HR* PATCH TRANSDERM SCH (08:09)
[2017-02-12] MEDS ORDERED: Influenza VAC *QUAD* 2017-18* 0.5 ML SYRINGE IM ONE (09:00)
--- NOTE | 2017-02-12 12:55 | PN ---
Subjective Date of Service: 02/12/17 Interval History: Patient has less coughing, less air hunger. She is dyspneic walking to , using commode. At baseline lives at home, walks to . Family History: Unchanged from Admission Social History: Unchanged from Admission Past Medical History: Unchanged from Admission Objective Active Medications: Acetaminophen (Tylenol Tab*) 650 mg PO Q4H PRN PRN Reason: FEVER/PAIN Albuterol (Ventolin 2.5 Mg/3 Ml Neb.Michelle*) 2.5 mg INH Q2H PRN PRN Reason: SOB/WHEEZING Last Admin: 02/09/17 16:35 Dose: 2.5 mg Albuterol/Ipratropium (Duoneb (Albuterol 2.5 Mg/Ipratropium 0.5 Mg)) 1 neb INH [id number] AWAKE [facility] Last Admin: 02/12/17 07:46 Dose: 1 neb Benzonatate (Tessalon Cap*) 100 mg PO TID PRN PRN Reason: COUGH Last Admin: 02/10/17 20:20 Dose: 100 mg Guaifenesin/Codeine Phosphate (Robitussin Ac 100mg-10mg*) 5 ml PO Q4H PRN PRN Reason: COUGH Last Admin: 02/12/17 04:15 Dose: 5 ml Heparin Sodium (Porcine) (Heparin Vial(*)) 5,000 units SUBCUT Q8HR [facility] Last Admin: 02/12/17 05:09 Dose: 5,000 units Mometasone Furoate/Formoterol Fumar (Dulera 200/5 Mdi*) 2 puff INH BID [facility] Last Admin: 02/12/17 07:50 Dose: 2 puff Morphine Sulfate (Morphine Inj (Syringe)*) 2 mg IV Q2H PRN PRN Reason: PAIN Last Admin: 02/12/17 11:04 Dose: 2 mg Nicotine (Nicotine Patch 14 Mg/24 Hr*) 1 patch TRANSDERM DAILY [facility] Last Admin: 02/12/17 08:09 Dose: 1 patch Ondansetron HCl (Zofran Inj*) 4 mg IV Q6H PRN PRN Reason: NAUSEA Pharmacy Profile Note (Nicotine Patch Removal Note*) 1 note FOLLOW UP 0600 [facility] Last Admin: 02/12/17 05:10 Dose: 1 note Prednisone (Deltasone Tab*) 20 mg PO DAILY [facility] Last Admin: 02/12/17 08:09 Dose: 20 mg Trazodone HCl (Desyrel Tab*) 50 mg PO BEDTIME PRN PRN Reason: INSOMNIA Last Admin: 02/10/17 23:14 Dose: 50 mg Vital Signs - 8 hr 02/12/17 02/12/17 02/12/17 06:18 07:21 07:35 Temperature Pulse Rate 86 Respiratory 19 18 Rate Blood Pressure (mmHg) O2 Sat by Pulse 99 Oximetry 02/12/17 02/12/17 02/12/17 07:40 08:00 08:53 Temperature 36.6 C Pulse Rate 81 Respiratory 18 18 20 Rate Blood Pressure 114/58 (mmHg) O2 Sat by Pulse 99 Oximetry Oxygen Devices in Use Now: Nasal Cannula Appearance: no resp distress Ears/Nose/Mouth/Throat: Clear Oropharnyx Neck: NL Appearance and Movements; NL JVP Respiratory: - - ronchi LT base, diminished throughout Cardiovascular: NL Sounds; No Murmurs; No JVD, RRR Abdominal: NL Sounds; No Tenderness; No Distention Neurological: Alert and Oriented x 3 Lines/Tubes/Other Access: Clean, Dry and Intact Peripheral IV Result Diagrams: 02/12/17 05:30 02/12/17 05:30 Additional Lab and Data: Laboratory Tests 02/12/17 05:30 Iron 24 L TIBC 361 % Saturation 7 L Unsat Iron Binding 337 Microbiology and Other Data: Microbiology 02/08/17 11:45 Sputum Gram Stain - Final 02/08/17 11:45 Sputum Sputum Culture - Final YEAST 02/07/17 19:58 Urine Legionella Urinary Antigen - Final 02/07/17 19:58 Urine Streptococcus pneumoniae Ag Screen - Final Negative Legionella Negative S. pneumo Antigen 02/07/17 17:25 Nasal Nasal Screen MRSA (PCR)(GILBERT) - Final Mrsa Negative 02/07/17 10:06 Blood Venous Aerobic Blood Culture - Final 02/07/17 10:06 Blood Venous Anaerobic Blood Culture - Final No Growth Day 5 No Growth Day 5 02/07/17 10:05 Nasal Influenza Types A,B Antigen (GILBERT) - Final Specimen received for Influenza A/B Molecular testing Assess/Plan/Problems-Billing Assessment: 66 year old woman with COPD, here with hypercapneic and hypoxic respiratory failure, ICU stay, now recovering. - Patient Problems (1) COPD with exacerbation Current Visit: Yes Status: Acute Priority: High Code(s): J44.1 - CHRONIC OBSTRUCTIVE PULMONARY DISEASE W (ACUTE) EXACERBATION SNOMED Code(s): 865713502568655 Comment: - COPD exacerbation responding to steroid, nebulizers - finished azithromycin today - respiratory failure is better compensated (2) Anemia Current Visit: Yes Status: Acute Priority: Medium Code(s): D64.9 - ANEMIA , UNSPECIFIED SNOMED Code(s): 675330974 Comment: - patient is iron-deficient - checking FOBT, and starting iron orally - anemia may contribute to dyspnea (3) DVT prophylaxis Current Visit: Yes Status: Chronic Priority: Low Code(s): VUX4358 - SNOMED Code(s): 211950107 Comment: SC heparin Status and Disposition: likely discharge in 1-2 days when closer to baseline
[2017-02-12] MEDS: LORazepam TAB(*) 0.5 MG PO PRN ×2 (15:04→21:24)
[2017-02-12] MEDS: Ferrous Sulfate TAB* 325 MG PO SCH (20:14)
[2017-02-12] MEDS: Benzonatate CAP* 100 MG PO PRN (20:15)
[2017-02-12] MEDS: traZODone TAB* 50 MG TAB PO PRN (21:24)
[2017-02-13] MEDS: Albuterol/Ipratropium NEB.SOL* Albuterol 2.5 MG/Ipratropium 0.5 MG 3 ML INH SCH ×4 (04:30→20:01)
[2017-02-13] MEDS: Nicotine Patch Removal NOTE FOLLOW UP SCH (05:34)
[2017-02-13] MEDS: Heparin VIAL(*) 5000 UNITS/ML VIAL (FIVE THOUSAND) SUBCUT SCH ×3 (05:34→22:12)
[2017-02-13] MEDS: Mometasone/Formoter 200/5 MDI INH SCH ×2 (07:44→19:58)
[2017-02-13] MEDS: Nicotine PATCH 14 MG/24 HR* PATCH TRANSDERM SCH (07:52)
[2017-02-13] MEDS: predniSONE TAB* 20 MG PO SCH (07:53)
[2017-02-13] MEDS: Ferrous Sulfate TAB* 325 MG PO SCH ×2 (07:53→20:41)
[2017-02-13] MEDS: guaiFENesin/CODIEN 100MG-10MG* 5 ML UDC PO PRN ×3 (07:56→20:40)
[2017-02-13] MEDS: LORazepam TAB(*) 0.5 MG PO PRN ×3 (08:39→20:41)
--- NOTE | 2017-02-13 09:55 | PN ---
Subjective Date of Service: 02/13/17 Interval History: HOSPITALIST PROGRESS NOTE Patient seen and examined at bedside. She feels better today, dyspnea is less intense, but still severe with exertion. Denies CP. Moist cough, unable to expectorate. Family History: Unchanged from Admission Social History: Unchanged from Admission Past Medical History: Unchanged from Admission Objective Active Medications: Acetaminophen (Tylenol Tab*) 650 mg PO Q4H PRN PRN Reason: FEVER/PAIN Albuterol (Ventolin 2.5 Mg/3 Ml Neb.Michelle*) 2.5 mg INH Q2H PRN PRN Reason: SOB/WHEEZING Last Admin: 02/09/17 16:35 Dose: 2.5 mg Albuterol/Ipratropium (Duoneb (Albuterol 2.5 Mg/Ipratropium 0.5 Mg)) 1 neb INH [id number] AWAKE [facility] Last Admin: 02/13/17 07:44 Dose: 1 neb Benzonatate (Tessalon Cap*) 100 mg PO TID PRN PRN Reason: COUGH Last Admin: 02/12/17 20:15 Dose: 100 mg Ferrous Sulfate (Ferrous Sulfate Tab*) 325 mg PO BID [facility] Last Admin: 02/13/17 07:53 Dose: 325 mg Guaifenesin/Codeine Phosphate (Robitussin Ac 100mg-10mg*) 5 ml PO Q4H PRN PRN Reason: COUGH Last Admin: 02/13/17 07:56 Dose: 5 ml Heparin Sodium (Porcine) (Heparin Vial(*)) 5,000 units SUBCUT Q8HR [facility] Last Admin: 02/13/17 05:34 Dose: 5,000 units Lorazepam (Ativan Tab(*)) 0.5 mg PO Q6H PRN PRN Reason: ANXIETY Last Admin: 02/13/17 08:39 Dose: 0.5 mg Mometasone Furoate/Formoterol Fumar (Dulera 200/5 Mdi*) 2 puff INH BID [facility] Last Admin: 02/13/17 07:44 Dose: 2 puff Morphine Sulfate (Morphine Inj (Syringe)*) 2 mg IV Q4H PRN PRN Reason: SHORTNESS OF BREATH Last Admin: 02/12/17 13:20 Dose: 2 mg Nicotine (Nicotine Patch 14 Mg/24 Hr*) 1 patch TRANSDERM DAILY [facility] Last Admin: 02/13/17 07:52 Dose: 1 patch Ondansetron HCl (Zofran Inj*) 4 mg IV Q6H PRN PRN Reason: NAUSEA Pharmacy Profile Note (Nicotine Patch Removal Note*) 1 note FOLLOW UP 0600 [facility] Last Admin: 02/13/17 05:34 Dose: 1 note Prednisone (Deltasone Tab*) 20 mg PO DAILY [facility] Last Admin: 02/13/17 07:53 Dose: 20 mg Trazodone HCl (Desyrel Tab*) 50 mg PO BEDTIME PRN PRN Reason: INSOMNIA Last Admin: 02/12/17 21:24 Dose: 50 mg Vital Signs - 8 hr 02/13/17 02/13/17 02/13/17 03:52 07:21 07:45 Temperature 98.6 F 98.4 F Pulse Rate 83 80 75 Respiratory 18 17 16 Rate Blood Pressure 133/56 119/54 (mmHg) O2 Sat by Pulse 98 98 99 Oximetry Oxygen Devices in Use Now: Nasal Cannula - 3 liters Appearance: Pleasant lady sitting up in bed in NAD. Eyes: No Scleral Icterus Ears/Nose/Mouth/Throat: Mucous Membranes Moist Neck: Trachea Midline Respiratory: Symmetrical Chest Expansion and Respiratory Effort, - - BS+ bilaterally decreased with scattered rhonchi Cardiovascular: RRR - Normal S1 and S2 Neurological: Alert and Oriented x 3, NL Muscle Strength and Tone Result Diagrams: 02/12/17 05:30 02/12/17 05:30 Assess/Plan/Problems-Billing Assessment: Mrs. Carpenter is a 66 F with PMH of ulcerative colitis, COPD, here with hypercapneic and hypoxic respiratory failure. - Patient Problems (1) Acute hypoxemic respiratory failure Comment: - Secondary to COPD exacerbation / bronchitis. - Continue supplemental O2. (2) COPD with exacerbation Comment: - COPD exacerbation responding to steroid, nebulizers. - Completed azithromycin course. - Flutter valve. (3) Anemia Comment: - Patient seems to be iron deficient - check ferritin. - FOBT is negative, no signs of acute bleeding. - Monitor H/H. (4) DVT prophylaxis Comment: - SQ heparin. (5) Full code status Status and Disposition: Inpatient.
[2017-02-13] MEDS: Morphine INJ* 2 MG/ML 1 ML SYRINGE (TWO MG - NEW SYRINGE VERSION) IV PRN ×2 (10:36→17:33)
[2017-02-13] MEDS: Benzonatate CAP* 100 MG PO PRN (20:41)
[2017-02-13] MEDS: traZODone TAB* 50 MG TAB PO PRN (23:05)
[2017-02-14] MEDS: Morphine INJ* 2 MG/ML 1 ML SYRINGE (TWO MG - NEW SYRINGE VERSION) IV PRN ×5 (02:12→20:30)
[2017-02-14] MEDS: Albuterol/Ipratropium NEB.SOL* Albuterol 2.5 MG/Ipratropium 0.5 MG 3 ML INH SCH ×4 (02:45→19:44)
[2017-02-14] MEDS: Heparin VIAL(*) 5000 UNITS/ML VIAL (FIVE THOUSAND) SUBCUT SCH ×3 (06:00→20:31)
[2017-02-14] MEDS: Nicotine Patch Removal NOTE FOLLOW UP SCH (06:02)
[2017-02-14] MEDS: guaiFENesin/CODIEN 100MG-10MG* 5 ML UDC PO PRN ×3 (06:02→15:50)
[2017-02-14 06:45] LABS: Hematocrit 25 % (35-47); Hemoglobin 7.8 g/dl (12.0-16.0); Mean Corpuscular HGB Conc 31 g/dl (31-36); Mean Corpuscular Hemoglobin 22 pg (27-31); Mean Corpuscular Volume 72 fL (80-97); Mean Platelet Volume 9 um3 (7.4-10.4); Red Blood Count 3.53 10^6/ul (4.0-5.4); Red Cell Distribution Width 22 % (10.5-15); White Blood Count 6.5 10^3/ul (3.5-10.8)
[2017-02-14 07:12] LABS: BUN/Creatinine Ratio 26.1 (8-20); Calcium 9.2 mg/dL (8.6-10.3); EGFR African American 109.5 (>60); EGFR Non-African American 85.1 (>60)
[2017-02-14 07:13] LABS: Add Diff/Slide Review? Slide Review Added; Comments Flag Yes
[2017-02-14] MEDS: Nicotine PATCH 14 MG/24 HR* PATCH TRANSDERM SCH (07:20)
[2017-02-14] MEDS: Ferrous Sulfate TAB* 325 MG PO SCH ×2 (07:20→20:31)
[2017-02-14] MEDS: predniSONE TAB* 20 MG PO SCH (07:20)
[2017-02-14 07:35] LABS: Ferritin 30.6 ng/mL (11-307)
[2017-02-14 07:41] LABS: Hypochromasia 1+; Microcytosis 1+; Tear Drop Cells 1+
[2017-02-14 07:43] LABS: Folate 4.4 ng/mL (>3.99)
[2017-02-14] MEDS: Mometasone/Formoter 200/5 MDI INH SCH ×2 (07:43→19:41)
--- NOTE | 2017-02-14 09:01 | PN ---
Subjective Date of Service: 02/14/17 Interval History: HOSPITALIST PROGRESS NOTE Patient seen and examined at bedside. She feels a little better today, but still has significant dyspnea with exertion. Family History: Unchanged from Admission Social History: Unchanged from Admission Past Medical History: Unchanged from Admission Objective Active Medications: Acetaminophen (Tylenol Tab*) 650 mg PO Q4H PRN PRN Reason: FEVER/PAIN Albuterol (Ventolin 2.5 Mg/3 Ml Neb.Michelle*) 2.5 mg INH Q2H PRN PRN Reason: SOB/WHEEZING Last Admin: 02/09/17 16:35 Dose: 2.5 mg Albuterol/Ipratropium (Duoneb (Albuterol 2.5 Mg/Ipratropium 0.5 Mg)) 1 neb INH [id number] AWAKE [facility] Last Admin: 02/14/17 07:41 Dose: 1 neb Benzonatate (Tessalon Cap*) 100 mg PO TID PRN PRN Reason: COUGH Last Admin: 02/13/17 20:41 Dose: 100 mg Ferrous Sulfate (Ferrous Sulfate Tab*) 325 mg PO BID [facility] Last Admin: 02/14/17 07:20 Dose: 325 mg Guaifenesin/Codeine Phosphate (Robitussin Ac 100mg-10mg*) 5 ml PO Q4H PRN PRN Reason: COUGH Last Admin: 02/14/17 06:02 Dose: 5 ml Heparin Sodium (Porcine) (Heparin Vial(*)) 5,000 units SUBCUT Q8HR [facility] Last Admin: 02/14/17 06:00 Dose: 5,000 units Lorazepam (Ativan Tab(*)) 0.5 mg PO Q6H PRN PRN Reason: ANXIETY Last Admin: 02/13/17 20:41 Dose: 0.5 mg Mometasone Furoate/Formoterol Fumar (Dulera 200/5 Mdi*) 2 puff INH BID [facility] Last Admin: 02/14/17 07:43 Dose: 2 puff Morphine Sulfate (Morphine Inj (Syringe)*) 2 mg IV Q4H PRN PRN Reason: SHORTNESS OF BREATH Last Admin: 02/14/17 07:55 Dose: 2 mg Nicotine (Nicotine Patch 14 Mg/24 Hr*) 1 patch TRANSDERM DAILY [facility] Last Admin: 02/14/17 07:20 Dose: 1 patch Ondansetron HCl (Zofran Inj*) 4 mg IV Q6H PRN PRN Reason: NAUSEA Pharmacy Profile Note (Nicotine Patch Removal Note*) 1 note FOLLOW UP 0600 [facility] Last Admin: 02/14/17 06:02 Dose: 1 note Prednisone (Deltasone Tab*) 20 mg PO DAILY [facility] Last Admin: 02/14/17 07:20 Dose: 20 mg Trazodone HCl (Desyrel Tab*) 50 mg PO BEDTIME PRN PRN Reason: INSOMNIA Last Admin: 02/13/17 23:05 Dose: 50 mg Vital Signs - 8 hr 02/14/17 02/14/17 02/14/17 07:20 07:24 07:30 Temperature 98.8 F 98.8 F Pulse Rate 91 91 Respiratory 16 16 18 Rate Blood Pressure 119/52 119/52 (mmHg) O2 Sat by Pulse 93 93 Oximetry Oxygen Devices in Use Now: Nasal Cannula - 3 liters Appearance: Pleasant lady sitting up in bed in NAD. Eyes: No Scleral Icterus Ears/Nose/Mouth/Throat: Mucous Membranes Moist Neck: Trachea Midline Respiratory: Symmetrical Chest Expansion and Respiratory Effort, - - BS+ bilaterally decreased, no added sounds Cardiovascular: RRR - Normal S1 and S2 Neurological: Alert and Oriented x 3, NL Muscle Strength and Tone Result Diagrams: 02/14/17 06:24 02/14/17 06:24 Assess/Plan/Problems-Billing Assessment: Mrs. Carpenter is a 66 F with PMH of ulcerative colitis, COPD, here with hypercapneic and hypoxic respiratory failure. - Patient Problems (1) Acute hypoxemic respiratory failure Comment: - Secondary to COPD exacerbation / bronchitis. - Continue supplemental O2. (2) COPD with exacerbation Comment: - COPD exacerbation responding to steroid, nebulizers. - Completed azithromycin course. - Flutter valve. (3) Anemia Comment: - Patient seems to be iron deficient - check ferritin. - FOBT is negative, no signs of acute bleeding. - Monitor H/H. (4) DVT prophylaxis Comment: - SQ heparin. (5) Full code status Status and Disposition: Inpatient. Anticipate d/c in AM. Will need home O2.
[2017-02-14] MEDS: LORazepam TAB(*) 0.5 MG PO PRN (20:31)
[2017-02-15] MEDS: Morphine INJ* 2 MG/ML 1 ML SYRINGE (TWO MG - NEW SYRINGE VERSION) IV PRN ×2 (00:37→11:46)
[2017-02-15] MEDS: guaiFENesin/CODIEN 100MG-10MG* 5 ML UDC PO PRN ×3 (00:40→14:04)
[2017-02-15] MEDS: Albuterol/Ipratropium NEB.SOL* Albuterol 2.5 MG/Ipratropium 0.5 MG 3 ML INH SCH ×3 (01:19→13:55)
[2017-02-15] MEDS: LORazepam TAB(*) 0.5 MG PO PRN (03:22)
[2017-02-15] MEDS: Heparin VIAL(*) 5000 UNITS/ML VIAL (FIVE THOUSAND) SUBCUT SCH ×2 (05:45→14:04)
[2017-02-15] MEDS: Nicotine Patch Removal NOTE FOLLOW UP SCH (05:48)
[2017-02-15] MEDS: Mometasone/Formoter 200/5 MDI INH SCH (07:28)
[2017-02-15] MEDS: Ferrous Sulfate TAB* 325 MG PO SCH (09:08)
[2017-02-15] MEDS: Nicotine PATCH 14 MG/24 HR* PATCH TRANSDERM SCH (09:08)
[2017-02-15] MEDS: Benzonatate CAP* 100 MG PO PRN (09:08)
[2017-02-15] MEDS: predniSONE TAB* 20 MG PO SCH (09:08)
[2017-02-15 11:37] VITALS: BP 116/47
--- NOTE | 2017-02-16 12:05 | DS ---
CC: Dr. Leary DISCHARGE SUMMARY: DATE OF ADMISSION: 02/07/17 DATE OF DISCHARGE: 02/15/17 PRIMARY CARE PROVIDER: Dr. Leary. DISCHARGE DIAGNOSES: 1. Acute hypoxemic respiratory failure. 2. Acute chronic obstructive pulmonary disease exacerbation. 3. Bronchitis. 4. Iron deficiency anemia. SECONDARY DIAGNOSES: 1. Ulcerative colitis. 2. Prior history of small bowel obstruction. 3. Arthritis. 4. Tobacco abuse. MEDICATION LIST: 1. Trazodone 50 mg p.o. at bedtime as needed for insomnia. 2. Symbicort 80/4.5, 2 puffs inhaled b.i.d. 3. Albuterol HFA 2 puffs inhaled every 4 hours p.r.n. shortness of breath. New medications: 1. Prednisone taper as follows: 15 mg p.o. daily for 3 days, 10 mg p.o. daily for 3 days, 5 mg for 3 days and then stop. 2. Spiriva 1 capsule inhaled daily. 3. Nicotine patch 40 mg topical daily. 4. Lorazepam 0.5 mg p.o. q.8 hours p.r.n. anxiety MDD 1.5 mg a day, dispensed 20 tablets with no refills. 5. Ferrous sulfate 325 mg p.o. b.i.d. HOSPITAL COURSE: Mrs. Carpenter is a 66-year-old lady with a past medical history as stated above that presented to the emergency room with 1 week of progressive shortness of breath, worsening cough, and malaise. On arrival in the emergency room, the patient was tachypneic and required BiPAP due to her work of breathing. She was also noted to have a fever with a temperature of 101.5 on arrival. The patient was admitted to the intensive care unit for further management. For more details about her presentation, I refer you to her history and physical. Her initial chest x-ray showed hyperinflation but no active disease. The patient was started on antibiotics, steroids and bronchodilators. She had slow improvement in ICU, was released from BiPAP and on 02/10/17, she was felt to be stable to be transferred to the medical floor. The patient's influenza test was negative as well as legionella and pneumococcal antigens. Her blood cultures yielded no growth. She completed antibiotic course and was started on a steroid taper. She did not require further BiPAP, but she still requires supplemental oxygen 3 L via nasal cannula while resting and 4 L with exertion. The patient is a smoker up to a pack a day for more than 50 years. She states that she tried to quit many times in the past and she is willing to try again. She was educated about the importance of quitting tobacco considering her condition and she states that she will try again with a nicotine patch. She is also aware that she cannot smoke while she is on supplemental oxygen due to risk of explosion/fire. The patient was also found to be anemic with a hemoglobin around 8 with microcytosis and hypochromia. Her anemia workup showed an iron level of 24 with a ferritin of 30 in the setting of acute disease. Her vitamin B12 was 780 , folate was 4.4, and her stool was negative for blood. The impression was that the patient has an iron deficiency anemia and she was started on ferrous sulfate and her H and H should be monitored as an outpatient. The patient had improvement of her symptoms. She feels her breathing is close to her baseline and she was thought to be stable to be discharged home today to follow up with Dr. Leary as outpatient. She may also benefit of referral to worm packer. PHYSICAL EXAMINATION: Vital Signs: Temperature 98.9, heart rate is 98, respiratory rate is 18, oxygen saturation 92% on 3 L, blood pressure is 116/47. General: The patient is an elderly lady sitting up in bed, in no acute distress. CVS: Normal S1 and S2. Regular rate and rhythm. Chest: Breath sounds present bilaterally, decreased. There were no added sounds. Abdomen is soft, nontender, nondistended. Bowel sounds present. Extremities: No edema. Neuro: She is alert, awake, and oriented x3. Able to move all 4 extremities. DIET: Regular diet. ACTIVITIES: As tolerated. DISPOSITION: To home. STATUS WHILE IN THE HOSPITAL: Inpatient. Please keep in mind this is a summarized version of this patient's hospital stay. If you need more information, please feel free to call me at [phone] or please obtain the full medical records. TIME SPENT: Approximately 50 minutes was spent to complete this discharge. [id number]/CPS #: [id number]
== END 2017-02-15 15:25 | disposition home or self-care (01) | DRG 208 ==
LOC: ED 09:42 → ICU 11:23 → MED 02-10 11:10
PROVIDERS: ADMIT Internal Medicine Critical Care Medicine; ATTEND Internal Medicine
PROC: 5A1945Z Respiratory Ventilation, 24-96 Consecutive Hours (ICD-10-PCS; principal; 2017-02-07)
PROC: 0BH17EZ Insertion of Endotracheal Airway into Trachea, Via Natural or Artificial Opening (ICD-10-PCS; 2017-02-07)
PROC: 5A09357 Assistance with Respiratory Ventilation, Less than 24 Consecutive Hours, Continuous Positive Airway Pressure (ICD-10-PCS; 2017-02-09)
DX: J44.1 Chronic obstructive pulmonary disease with (acute) exacerbation (principal); J96.01 Acute respiratory failure with hypoxia; J96.02 Acute respiratory failure with hypercapnia; J18.9 Pneumonia, unspecified organism; K51.90 Ulcerative colitis, unspecified, without complications; F17.210 Nicotine dependence, cigarettes, uncomplicated; R40.2412 Glasgow coma scale score 13-15, at arrival to emergency department; M19.90 Unspecified osteoarthritis, unspecified site; D63.8 Anemia in other chronic diseases classified elsewhere; J40 Bronchitis, not specified as acute or chronic; D50.9 Iron deficiency anemia, unspecified; Z82.49 Family history of ischemic heart disease and other diseases of the circulatory system; Z83.3 Family history of diabetes mellitus; Z80.0 Family history of malignant neoplasm of digestive organs; Z82.5 Family history of asthma and other chronic lower respiratory diseases; Z23 Encounter for immunization
CPT/HCPCS: 36415; 36600; 71010; 80048; 80053; 81003; 81015; 82272; 82550; 82553; 82607; 82728; 82746; 82803; 83540; 83550; 83605; 83735; 83880; 84100; 84484; 85025; 85610; 85730; 86140; 87040; 87070; 87205; 87502; 87641; 87899; 90686; 93005; 94002; 94003; 94640; 94660; 94760; 94761; 99406; A9270-GY; J0330; J0456; J0696; J1644; J2270; J2704; J2920; J2930; J7512

== ENCOUNTER 2020-10-10 05:44 | Inpatient (IN) ==
[2020-10-10 06:11] LABS: ABS Basophils 0.1 10^3/ul (0-0.2); ABS Lymphocytes 0.5 10^3/ul (1.0-4.8); ABS Monocytes 0.7 10^3/ul (0-0.8); ABS Neutrophils 7.4 10^3/ul (1.5-7.7); Eosinophil % 0.1 %; Hematocrit 38 % (35-47); Hemoglobin 11.5 g/dL (12.0-16.0); Lymphocyte % 5.3 %; Mean Corpuscular HGB Conc 30 g/dL (31-36); Mean Corpuscular Hemoglobin 23 pg (27-31); Mean Corpuscular Volume 75 fL (80-97); Mean Platelet Volume 9.1 fL (7.4-10.4); Nucleated Red Blood Cells % 0.5; Platelet Count 322 10^3/uL (150-450); Red Blood Count 5.04 10^6 /uL (3.70-4.87); Red Cell Distribution Width 21 % (10-15); White Blood Count 8.6 10^3/uL (3.5-10.8)
[2020-10-10 06:26] LABS: ALT 132 U/L (7-52); AST 85 U/L (13-39); Albumin 4.5 g/dL (3.2-5.2); Albumin/Globulin Ratio 1.4 (1-3); Alkaline Phosphatase 92 U/L (35-149); Blood Urea Nitrogen 59 mg/dL (6-24); CO2 Carbon Dioxide 29 mmol/L (22-32); Calcium 10.2 mg/dL (8.6-10.3); Chloride 104 mmol/L (101-111); EGFR African American 48.1 (>60); EGFR Non-African American 39.8 (>60); Globulin 3.2 g/dL (2-4); Glucose 185 mg/dL (70-100); Magnesium 2.2 mg/dL (1.9-2.7); Sodium 141 mmol/L (135-145); Total Protein 7.7 g/dL (6.4-8.9)
[2020-10-10] MEDS ORDERED: Azithromycin 500 mg/250 ml NS 500 MG/250 ML BAG IVPB ONE (06:29)
[2020-10-10] MEDS ORDERED: Dexamethasone IV 4 MG/ML VIAL 1 ml VIAL IV SLOW PU ONE (06:29)
[2020-10-10] MEDS ORDERED: Magnesium Sulfate IV 1GM/100ML 1 GM/100 ML BAG IV ONE (06:29)
[2020-10-10 06:42] LABS: Anion Gap 8 mmol/L (2-11); Potassium 6.3 mmol/L (3.5-5.0)
[2020-10-10] MEDS ORDERED: Dextrose 50% Syringe 50 ml 25 GM/50 ML SYRINGE IV PUSH ONE ×2 (06:43)
[2020-10-10] MEDS ORDERED: Iodixanol (CONTRAST) 320 MG/ML 100 ML SDV IV ONE (07:12)
[2020-10-10] MEDS: Albuterol HFA INHALER 8 gm MDI INH ONE ×2 (07:22→07:30)
[2020-10-10] MEDS ORDERED: Albuterol 2.5mg/3 ml (0.083%) NEB.SOLN INH ONE (08:38)
[2020-10-10] MEDS ORDERED: Patiromer POWDER 8.4 GM PAK PO SCH (09:00)
[2020-10-10] MEDS ORDERED: Sodium Bicarbonate 8.4% SYR 50 ml SYRINGE ONE (09:31)
[2020-10-10] MEDS ORDERED: EPINEPHrine SYR 0.1MG/ML 10 ml SYRINGE ONE (09:31)
[2020-10-10] MEDS ORDERED: Calcium CHLORIDE 10% SYRINGE 1 GM/10 ML ONE ×2 (09:31)
[2020-10-10 09:37] LABS: ALT 123 U/L (7-52); AST 79 U/L (13-39); Albumin 3.7 g/dL (3.2-5.2); Albumin/Globulin Ratio 1.4 (1-3); Alkaline Phosphatase 75 U/L (35-149); Blood Urea Nitrogen 63 mg/dL (6-24); CO2 Carbon Dioxide 30 mmol/L (22-32); Calcium 9.4 mg/dL (8.6-10.3); Chloride 107 mmol/L (101-111); EGFR African American 50.3 (>60); EGFR Non-African American 41.6 (>60); Globulin 2.6 g/dL (2-4); Glucose 147 mg/dL (70-100); Sodium 142 mmol/L (135-145); Total Protein 6.3 g/dL (6.4-8.9)
[2020-10-10 09:38] LABS: Anion Gap 5 mmol/L (2-11); Potassium 5.3 mmol/L (3.5-5.0)
[2020-10-10] MEDS ORDERED: Propofol 10 mg/ml 100 ML BTL 100 ML ONE (09:41)
[2020-10-10] MEDS ORDERED: Propofol 10 mg/ml 100 ML BTL 100 ML IV ONE ×2 (09:42→10:25)
[2020-10-10 09:50] LABS: Troponin I 0.11 ng/mL (<0.03)
[2020-10-10 10:19] LABS: ALT 124 U/L (7-52); AST 90 U/L (13-39); Albumin 3.5 g/dL (3.2-5.2); Albumin/Globulin Ratio 1.5 (1-3); Alkaline Phosphatase 79 U/L (35-149); Blood Urea Nitrogen 63 mg/dL (6-24); CO2 Carbon Dioxide 27 mmol/L (22-32); Calcium 11.6 mg/dL (8.6-10.3); Chloride 106 mmol/L (101-111); EGFR African American 43.9 (>60); EGFR Non-African American 36.3 (>60); Globulin 2.4 g/dL (2-4); Glucose 192 mg/dL (70-100); Sodium 142 mmol/L (135-145); Total Protein 5.9 g/dL (6.4-8.9)
[2020-10-10] MEDS ORDERED: methylPREDNISolone 125 mg 2 ML VIAL IV ONE (10:24)
[2020-10-10 10:29] LABS: Troponin I 0.13 ng/mL (<0.03)
[2020-10-10] MEDS ORDERED: Albuterol/Ipratropium NEB.SOL (2.5/0.5 MG) 3 ML NEB.SOLN INH PRN (10:31)
[2020-10-10 10:37] LABS: Anion Gap 9 mmol/L (2-11); Potassium 5.1 mmol/L (3.5-5.0)
[2020-10-10 11:18] LABS: INR 1.12 (0.86-1.15)
[2020-10-10 11:48] LABS: Phosphorus 6.3 mg/dL (2.5-5.0)
[2020-10-10 11:57] LABS: PCO2 Arterial 61 mmHg (35-45); PO2 Arterial 132 mmHg (80-100)
[2020-10-10] MEDS: cefTRIAXone 1 gm/50 mL NS BAG 1 GM/50 ML BAG IVPB SCH (14:04)
[2020-10-10] MEDS: Chlorhexidine MOUTHWASH 0.12% 15 ML UDC TOPICAL SCH ×4 (14:04→23:46)
[2020-10-10 14:56] LABS: Urine Appearance Cloudy; Urine Bilirubin Negative (Negative); Urine Blood 2+ (Negative); Urine Color Yellow; Urine Glucose Negative (Negative); Urine Ketones Negative (Negative); Urine Nitrite Negative (Negative); Urine Protein 2+(100 mg/dL) (Negative); Urine Specific Gravity 1.054 (1.002-1.030); Urine Urobilinogen Negative (Negative)
[2020-10-10 15:04] LABS: Urine Bacteria Absent (Absent); Urine Red Blood Cell 3+(>10/hpf) (Absent); Urine Squamous Epithelial Cell Present (Absent); Urine White Blood Cell 2+(11-20/hpf) (Absent)
[2020-10-10] MEDS ORDERED: Furosemide 40 mg/4 ml IV VIAL IV SLOW PU ONE (15:27)
[2020-10-10 16:13] LABS: Anion Gap 8 mmol/L (2-11); Blood Urea Nitrogen 59 mg/dL (6-24); CO2 Carbon Dioxide 30 mmol/L (22-32); Calcium 10.4 mg/dL (8.6-10.3); Chloride 106 mmol/L (101-111); EGFR African American 55.9 (>60); EGFR Non-African American 46.2 (>60); Glucose 177 mg/dL (70-100); Potassium 4.5 mmol/L (3.5-5.0); Sodium 144 mmol/L (135-145)
[2020-10-10 16:19] LABS: Troponin I 0.17 ng/mL (<0.03)
[2020-10-10] MEDS: Meperidine 50 mg/ml SYRINGE 1 ml IV PRN (17:15)
[2020-10-10] MEDS: Albuterol/Ipratropium NEB.SOL (2.5/0.5 MG) 3 ML NEB.SOLN INH SCH ×3 (18:06→22:53)
[2020-10-10 19:39] LABS: Hematocrit 33 % (35-47); Hemoglobin 9.7 g/dL (12.0-16.0); Mean Corpuscular HGB Conc 30 g/dL (31-36); Mean Corpuscular Hemoglobin 22 pg (27-31); Mean Corpuscular Volume 75 fL (80-97); Mean Platelet Volume 8.9 fL (7.4-10.4); Platelet Count 235 10^3/uL (150-450); Red Blood Count 4.37 10^6 /uL (3.70-4.87); Red Cell Distribution Width 20 % (10-15); White Blood Count 15.7 10^3/uL (3.5-10.8)
[2020-10-10 19:54] LABS: ALT 156 U/L (7-52); AST 93 U/L (13-39); Albumin 3.6 g/dL (3.2-5.2); Albumin/Globulin Ratio 1.4 (1-3); Alkaline Phosphatase 76 U/L (35-149); Anion Gap 9 mmol/L (2-11); Blood Urea Nitrogen 64 mg/dL (6-24); CO2 Carbon Dioxide 31 mmol/L (22-32); Calcium 10.5 mg/dL (8.6-10.3); Chloride 105 mmol/L (101-111); EGFR African American 51.7 (>60); EGFR Non-African American 42.8 (>60); Globulin 2.5 g/dL (2-4); Glucose 162 mg/dL (70-100); Potassium 4.7 mmol/L (3.5-5.0); Sodium 145 mmol/L (135-145); Total Protein 6.1 g/dL (6.4-8.9)
[2020-10-10 20:01] LABS: Troponin I 0.19 ng/mL (<0.03)
[2020-10-10] MEDS: Propofol 10 mg/ml 100 ML BTL 100 ML IV SCH (20:08)
[2020-10-10] MEDS: Heparin 5000 UNITS/ML 1 mL VIAL SUBCUT SCH (20:09)
[2020-10-10] MEDS: methylPREDNISolone SOD 40 mg/ml 1 ml VIAL IV SCH (20:09)
[2020-10-10 22:49] LABS: Troponin I 0.19 ng/mL (<0.03)
[2020-10-11] MEDS: Meperidine 50 mg/ml SYRINGE 1 ml IV PRN ×2 (00:04→01:51)
[2020-10-11] MEDS: Propofol 10 mg/ml 100 ML BTL 100 ML IV SCH ×3 (02:41→16:48)
[2020-10-11] MEDS: Albuterol/Ipratropium NEB.SOL (2.5/0.5 MG) 3 ML NEB.SOLN INH SCH ×6 (03:00→22:53)
[2020-10-11] MEDS: methylPREDNISolone SOD 40 mg/ml 1 ml VIAL IV SCH ×2 (03:55→15:06)
[2020-10-11] MEDS: Chlorhexidine MOUTHWASH 0.12% 15 ML UDC TOPICAL SCH ×6 (03:55→23:49)
[2020-10-11 04:39] LABS: Hematocrit 30 % (35-47); Mean Corpuscular HGB Conc 31 g/dL (31-36); Mean Corpuscular Hemoglobin 23 pg (27-31); Mean Corpuscular Volume 74 fL (80-97); Mean Platelet Volume 8.8 fL (7.4-10.4); Platelet Count 193 10^3/uL (150-450); Red Cell Distribution Width 21 % (10-15); White Blood Count 9.9 10^3/uL (3.5-10.8)
[2020-10-11 04:43] LABS: Anion Gap 8 mmol/L (2-11); Blood Urea Nitrogen 62 mg/dL (6-24); CO2 Carbon Dioxide 32 mmol/L (22-32); Calcium 10.2 mg/dL (8.6-10.3); Chloride 105 mmol/L (101-111); EGFR African American 57.6 (>60); EGFR Non-African American 47.6 (>60); Glucose 152 mg/dL (70-100); Phosphorus 4.2 mg/dL (2.5-5.0); Potassium 3.4 mmol/L (3.5-5.0); Sodium 145 mmol/L (135-145)
[2020-10-11 04:49] LABS: Troponin I 0.16 ng/mL (<0.03)
[2020-10-11] MEDS ORDERED: Potassium Chloride LIQUID 20 MEQ/15 ML LIQUID PO ONE (07:09)
[2020-10-11] MEDS: Azithromycin 500 mg/250 ml NS 500 MG/250 ML BAG IVPB SCH (07:35)
[2020-10-11] MEDS ORDERED: Artificial Tear OPHTH.OINT 3.5 GM BOTH EYES PRN (07:51)
[2020-10-11] MEDS: Pantoprazole VIAL 40 MG VIAL IV SCH (08:10)
[2020-10-11] MEDS: fentaNYL 100 mcg/2 ml 50 MCG/ML VIAL IV SLOW PU PRN ×3 (08:10→17:28)
[2020-10-11] MEDS: Norepinephrine 16MCG/ML IVPRE 4,000 MCG/250 ML BAG IV SCH ×2 (08:10→23:49)
[2020-10-11] MEDS: Heparin 5000 UNITS/ML 1 mL VIAL SUBCUT SCH ×2 (08:10→20:47)
[2020-10-11] MEDS ORDERED: Furosemide 40 mg/4 ml IV VIAL IV SLOW PU ONE (09:10)
[2020-10-11] MEDS: cefTRIAXone 1 gm/50 mL NS BAG 1 GM/50 ML BAG IVPB SCH (10:31)
[2020-10-11] MEDS ORDERED: Magnesium Sulfate 2 gm BAG 2 GM/50 ML BAG IVPB ONE (11:30)
[2020-10-11] MEDS ORDERED: Magnesium Sulfate 2 gm BAG 2 GM/50 ML BAG ONE (11:40)
[2020-10-11] MEDS ORDERED: KCL 20 MEQ/100 ML IVPREMIX 20 MEQ/100 ML BAG ONE (11:40)
[2020-10-11] MEDS: KCL 20 MEQ/100 ML IVPREMIX 20 MEQ/100 ML BAG IV SCH ×2 (11:42→13:46)
[2020-10-11 18:32] LABS: Calcium 9.6 mg/dL (8.6-10.3); EGFR African American 42.9 (>60); EGFR Non-African American 35.4 (>60); Magnesium 2.9 mg/dL (1.9-2.7); Potassium 4.9 mmol/L (3.5-5.0)
[2020-10-12] MEDS: Propofol 10 mg/ml 100 ML BTL 100 ML IV SCH ×3 (02:36→22:35)
[2020-10-12] MEDS: Albuterol/Ipratropium NEB.SOL (2.5/0.5 MG) 3 ML NEB.SOLN INH SCH ×5 (03:04→23:57)
[2020-10-12] MEDS: Chlorhexidine MOUTHWASH 0.12% 15 ML UDC TOPICAL SCH ×5 (03:34→21:05)
[2020-10-12] MEDS: methylPREDNISolone SOD 40 mg/ml 1 ml VIAL IV SCH ×2 (03:34→17:32)
[2020-10-12 04:31] LABS: Hematocrit 29 % (35-47); Mean Corpuscular HGB Conc 31 g/dL (31-36); Mean Corpuscular Hemoglobin 22 pg (27-31); Mean Corpuscular Volume 72 fL (80-97); Mean Platelet Volume 9.5 fL (7.4-10.4); Platelet Count 243 10^3/uL (150-450); Red Blood Count 4.03 10^6 /uL (3.70-4.87); Red Cell Distribution Width 20 % (10-15)
[2020-10-12 04:42] LABS: Calcium 9.7 mg/dL (8.6-10.3); EGFR African American 47.3 (>60); EGFR Non-African American 39.1 (>60); Magnesium 2.6 mg/dL (1.9-2.7); Phosphorus 5.1 mg/dL (2.5-5.0); Potassium 4.4 mmol/L (3.5-5.0)
[2020-10-12] MEDS: Azithromycin 500 mg/250 ml NS 500 MG/250 ML BAG IVPB SCH (07:57)
[2020-10-12] MEDS: Heparin 5000 UNITS/ML 1 mL VIAL SUBCUT SCH ×2 (09:29→21:05)
[2020-10-12] MEDS: Pantoprazole VIAL 40 MG VIAL IV SCH (09:30)
[2020-10-12] MEDS: cefTRIAXone 1 gm/50 mL NS BAG 1 GM/50 ML BAG IVPB SCH (10:58)
[2020-10-13] MEDS: Chlorhexidine MOUTHWASH 0.12% 15 ML UDC TOPICAL SCH ×5 (00:26→17:30)
[2020-10-13] MEDS: Propofol 10 mg/ml 100 ML BTL 100 ML IV SCH (03:09)
[2020-10-13] MEDS: methylPREDNISolone SOD 40 mg/ml 1 ml VIAL IV SCH ×2 (03:09→17:40)
[2020-10-13 05:28] LABS: Hematocrit 30 % (35-47); Hemoglobin 9.1 g/dL (12.0-16.0); Mean Corpuscular HGB Conc 30 g/dL (31-36); Mean Corpuscular Hemoglobin 22 pg (27-31); Mean Corpuscular Volume 73 fL (80-97); Mean Platelet Volume 9.6 fL (7.4-10.4); Platelet Count 218 10^3/uL (150-450); Red Cell Distribution Width 21 % (10-15); White Blood Count 10.4 10^3/uL (3.5-10.8)
[2020-10-13 05:40] LABS: Calcium 9.7 mg/dL (8.6-10.3); EGFR Non-African American 51.2 (>60); Magnesium 2.5 mg/dL (1.9-2.7); Phosphorus 4.2 mg/dL (2.5-5.0); Potassium 3.9 mmol/L (3.5-5.0)
[2020-10-13] MEDS: Albuterol/Ipratropium NEB.SOL (2.5/0.5 MG) 3 ML NEB.SOLN INH SCH ×3 (07:40→21:44)
[2020-10-13] MEDS: Pantoprazole VIAL 40 MG VIAL IV SCH (08:14)
[2020-10-13] MEDS: Azithromycin 500 mg/250 ml NS 500 MG/250 ML BAG IVPB SCH (08:14)
[2020-10-13] MEDS: Heparin 5000 UNITS/ML 1 mL VIAL SUBCUT SCH ×2 (08:14→21:59)
[2020-10-13] MEDS ORDERED: Norepinephrine 16MCG/ML IVPRE 4,000 MCG/250 ML BAG IV SCH (09:44)
[2020-10-13] MEDS: cefTRIAXone 1 gm/50 mL NS BAG 1 GM/50 ML BAG IVPB SCH (11:14)
[2020-10-13] MEDS ORDERED: Albuterol/Ipratropium NEB.SOL (2.5/0.5 MG) 3 ML NEB.SOLN INH PRN (12:30)
[2020-10-13] MEDS ORDERED: Albuterol/Ipratropium NEB.SOL (2.5/0.5 MG) 3 ML NEB.SOLN ONE (12:31)
[2020-10-13] MEDS ORDERED: Furosemide 20 mg/2 ml IV VIAL IV SLOW PU ONE (20:57)
[2020-10-13] MEDS ORDERED: SPIRIVA Respimat (tiotropium) 2.5 mcg/inh Inhaler INH SCH (21:00)
[2020-10-13] MEDS ORDERED: Albuterol/Ipratropium NEB.SOL (2.5/0.5 MG) 3 ML NEB.SOLN INH SCH (21:00)
[2020-10-13] MEDS ORDERED: Ondansetron 4 mg VIAL 2 MG/ML 2 ml VIAL IV PRN (23:46)
[2020-10-13] MEDS ORDERED: Metoprolol Tartrate 5 mg VIAL 5 ml VIAL (1 mg/ml) IV ONE (23:47)
[2020-10-14] MEDS: Albuterol/Ipratropium NEB.SOL (2.5/0.5 MG) 3 ML NEB.SOLN INH SCH ×4 (02:50→15:43)
[2020-10-14] MEDS: methylPREDNISolone SOD 40 mg/ml 1 ml VIAL IV SCH ×2 (04:27→16:12)
[2020-10-14 04:42] LABS: Hematocrit 30 % (35-47); Hemoglobin 8.8 g/dL (12.0-16.0); Mean Corpuscular HGB Conc 29 g/dL (31-36); Mean Corpuscular Hemoglobin 22 pg (27-31); Mean Corpuscular Volume 75 fL (80-97); Mean Platelet Volume 8.8 fL (7.4-10.4); Platelet Count 177 10^3/uL (150-450); Red Blood Count 4.01 10^6 /uL (3.70-4.87); Red Cell Distribution Width 21 % (10-15); White Blood Count 11.1 10^3/uL (3.5-10.8)
[2020-10-14 04:54] LABS: Calcium 9.7 mg/dL (8.6-10.3); EGFR African American 59.4 (>60); EGFR Non-African American 49.1 (>60); Magnesium 2.4 mg/dL (1.9-2.7); Potassium 4.5 mmol/L (3.5-5.0)
[2020-10-14] MEDS: Azithromycin 500 mg/250 ml NS 500 MG/250 ML BAG IVPB SCH (07:50)
[2020-10-14] MEDS: Heparin 5000 UNITS/ML 1 mL VIAL SUBCUT SCH ×2 (09:27→09:34)
[2020-10-14] MEDS: Pantoprazole VIAL 40 MG VIAL IV SCH ×2 (09:27→22:27)
[2020-10-14] MEDS: cefTRIAXone 1 gm/50 mL NS BAG 1 GM/50 ML BAG IVPB SCH (10:50)
[2020-10-14] MEDS ORDERED: Perflutren Lipid Microsphere 3 ML VIAL ONE (12:51)
[2020-10-14] MEDS ORDERED: Albuterol/Ipratropium NEB.SOL (2.5/0.5 MG) 3 ML NEB.SOLN INH SCH ×2 (19:00→22:00)
[2020-10-15] MEDS: Albuterol/Ipratropium NEB.SOL (2.5/0.5 MG) 3 ML NEB.SOLN INH SCH ×2 (02:05→07:57)
[2020-10-15 05:57] LABS: ABS Lymphocytes 0.1 10^3/ul (1.0-4.8); ABS Monocytes 0.6 10^3/ul (0-0.8); Hematocrit 30 % (35-47); Hemoglobin 8.6 g/dL (12.0-16.0); Lymphocyte % 1.2 %; Mean Corpuscular HGB Conc 29 g/dL (31-36); Mean Corpuscular Hemoglobin 22 pg (27-31); Mean Corpuscular Volume 76 fL (80-97); Mean Platelet Volume 9.3 fL (7.4-10.4); Nucleated Red Blood Cells % 0.4; Platelet Count 161 10^3/uL (150-450); Red Blood Count 3.95 10^6 /uL (3.70-4.87); Red Cell Distribution Width 21 % (10-15); White Blood Count 11.8 10^3/uL (3.5-10.8)
[2020-10-15 05:59] LABS: INR 1.06 (0.86-1.15)
[2020-10-15 06:24] LABS: Calcium 9.5 mg/dL (8.6-10.3); EGFR Non-African American 37.2 (>60); Magnesium 2.4 mg/dL (1.9-2.7); Phosphorus 5.6 mg/dL (2.5-5.0)
[2020-10-15 06:59] LABS: Potassium 5.2 mmol/L (3.5-5.0)
[2020-10-15] MEDS: Azithromycin 500 mg/250 ml NS 500 MG/250 ML BAG IVPB SCH (08:07)
[2020-10-15] MEDS ORDERED: Albuterol 2.5mg/3 ml (0.083%) NEB.SOLN INH PRN (09:00)
[2020-10-15] MEDS: Pantoprazole VIAL 40 MG VIAL IV SCH ×2 (09:13→20:20)
[2020-10-15] MEDS ORDERED: Phenylephrine IV 10 MG/ML 1 ml VIAL ONE (09:15)
[2020-10-15] MEDS ORDERED: DOBUTamine 2000 MCG/ML IVPREMX 500 MG/250 ML BAG IV ONE (09:22)
[2020-10-15] MEDS ORDERED: Norepinephrine 16MCG/ML IVPRE 4,000 MCG/250 ML BAG IV ONE (09:37)
[2020-10-15] MEDS ORDERED: Phenylephrine IV 50 MG in NS 0.9% 250 ml 245 ML IV SCH (10:00)
[2020-10-15] MEDS ORDERED: DOBUTamine 2000 MCG/ML IVPREMX 500 MG/250 ML BAG IV SCH (10:00)
[2020-10-15] MEDS ORDERED: Norepinephrine 16MCG/ML IVPRE 4,000 MCG/250 ML BAG IV SCH (10:00)
[2020-10-15] MEDS ORDERED: Sodium Polystyrene ORAL.SUSP 15 GM/60 ML BTL PO ONE (10:47)
[2020-10-15] MEDS: cefTRIAXone 1 gm/50 mL NS BAG 1 GM/50 ML BAG IVPB SCH (11:05)
[2020-10-15 13:10] LABS: Troponin I 0.13 ng/mL (<0.03)
[2020-10-15] MEDS ORDERED: Digoxin IV 0.5 MG/2 ML AMP (0.25 MG/ML) IV SLOW PU ONE ×2 (13:16→19:30)
[2020-10-15] MEDS ORDERED: Digoxin IV 0.5 MG/2 ML AMP (0.25 MG/ML) ONE (13:20)
[2020-10-15] MEDS: Mometasone/Formoter 100/5 MDI INH SCH ×2 (15:08→19:12)
[2020-10-15] MEDS: SPIRIVA Respimat (tiotropium) 2.5 mcg/inh Inhaler INH SCH (15:08)
[2020-10-15] MEDS ORDERED: Furosemide 40 mg/4 ml IV VIAL IV ONE (18:24)
[2020-10-15] MEDS ORDERED: Iron Sucrose 200 MG in NS 0.9% 100 ml BAG 100 ML IVPB ONE (18:45)
[2020-10-15 19:05] LABS: % Iron Saturation 11 % (15-55); Iron 34 ug/dL (50-212); Total Iron Binding Capacity 319 mcg/dL (250-450); Transferrin 228 mg/dL (203-362); Unsaturated Iron Binding < 304 ug/dL
[2020-10-15 19:18] LABS: Troponin I 0.13 ng/mL (<0.03)
[2020-10-15 19:23] LABS: Ferritin 30.5 ng/mL (11-307)
[2020-10-15 22:11] LABS: Anion Gap 4 mmol/L (2-11); Blood Urea Nitrogen 82 mg/dL (6-24); CO2 Carbon Dioxide 31 mmol/L (22-32); Calcium 8.9 mg/dL (8.6-10.3); Chloride 108 mmol/L (101-111); EGFR African American 45.7 (>60); EGFR Non-African American 37.8 (>60); Glucose 128 mg/dL (70-100); Magnesium 2.3 mg/dL (1.9-2.7); Sodium 143 mmol/L (135-145)
[2020-10-15 22:45] LABS: Troponin I 0.13 ng/mL (<0.03)
[2020-10-16] MEDS ORDERED: Digoxin IV 0.5 MG/2 ML AMP (0.25 MG/ML) IV SLOW PU ONE (01:30)
[2020-10-16 05:54] LABS: ABS Lymphocytes 0.1 10^3/ul (1.0-4.8); ABS Monocytes 0.4 10^3/ul (0-0.8); ABS Neutrophils 8.3 10^3/ul (1.5-7.7); Hematocrit 30 % (35-47); Hemoglobin 8.8 g/dL (12.0-16.0); Mean Corpuscular HGB Conc 29 g/dL (31-36); Mean Corpuscular Hemoglobin 22 pg (27-31); Mean Corpuscular Volume 75 fL (80-97); Mean Platelet Volume 8.8 fL (7.4-10.4); Nucleated Red Blood Cells % 0.1; Platelet Count 148 10^3/uL (150-450); Red Blood Count 3.98 10^6 /uL (3.70-4.87); Red Cell Distribution Width 20 % (10-15); White Blood Count 8.8 10^3/uL (3.5-10.8)
[2020-10-16 06:08] LABS: Blood Urea Nitrogen 76 mg/dL (6-24); CO2 Carbon Dioxide 37 mmol/L (22-32); Calcium 9.1 mg/dL (8.6-10.3); Chloride 106 mmol/L (101-111); EGFR Non-African American 49.6 (>60); Glucose 126 mg/dL (70-100); Magnesium 2.1 mg/dL (1.9-2.7); Phosphorus 3.9 mg/dL (2.5-5.0); Potassium 4.3 mmol/L (3.5-5.0)
[2020-10-16 06:38] LABS: Troponin I 0.18 ng/mL (<0.03)
[2020-10-16 07:00] LABS: Digoxin 3.2 ng/ml (0.8-2.0)
[2020-10-16 07:03] LABS: Anion Gap 3 mmol/L (2-11); Sodium 146 mmol/L (135-145)
[2020-10-16] MEDS: Mometasone/Formoter 100/5 MDI INH SCH ×2 (07:30→20:48)
[2020-10-16] MEDS: SPIRIVA Respimat (tiotropium) 2.5 mcg/inh Inhaler INH SCH (07:31)
[2020-10-16] MEDS: Pantoprazole VIAL 40 MG VIAL IV SCH ×2 (09:06→21:02)
[2020-10-16] MEDS: cefTRIAXone 1 gm/50 mL NS BAG 1 GM/50 ML BAG IVPB SCH (11:59)
[2020-10-17 05:20] LABS: ABS Lymphocytes 0.2 10^3/ul (1.0-4.8); ABS Monocytes 0.9 10^3/ul (0-0.8); ABS Neutrophils 8.5 10^3/ul (1.5-7.7); Hematocrit 30 % (35-47); Hemoglobin 8.7 g/dL (12.0-16.0); Mean Corpuscular HGB Conc 29 g/dL (31-36); Mean Corpuscular Hemoglobin 22 pg (27-31); Mean Corpuscular Volume 75 fL (80-97); Mean Platelet Volume 9.3 fL (7.4-10.4); Nucleated Red Blood Cells % 0.1; Platelet Count 149 10^3/uL (150-450); Red Blood Count 3.95 10^6 /uL (3.70-4.87); Red Cell Distribution Width 20 % (10-15); White Blood Count 9.6 10^3/uL (3.5-10.8)
[2020-10-17 05:36] LABS: Blood Urea Nitrogen 52 mg/dL (6-24); CO2 Carbon Dioxide 39 mmol/L (22-32); Calcium 9.6 mg/dL (8.6-10.3); Chloride 109 mmol/L (101-111); EGFR African American 88.3 (>60); Glucose 85 mg/dL (70-100); Magnesium 2.1 mg/dL (1.9-2.7); Phosphorus 2.1 mg/dL (2.5-5.0)
[2020-10-17 05:39] LABS: Anion Gap 1 mmol/L (2-11); Sodium 149 mmol/L (135-145)
[2020-10-17 05:41] LABS: Troponin I 0.15 ng/mL (<0.03)
[2020-10-17 06:17] LABS: Digoxin 1.8 ng/ml (0.8-2.0)
[2020-10-17] MEDS: Mometasone/Formoter 100/5 MDI INH SCH ×2 (09:15→20:28)
[2020-10-17] MEDS: SPIRIVA Respimat (tiotropium) 2.5 mcg/inh Inhaler INH SCH (09:15)
[2020-10-17] MEDS: Pantoprazole VIAL 40 MG VIAL IV SCH (09:24)
[2020-10-18] MEDS: Mometasone/Formoter 100/5 MDI INH SCH ×2 (08:51→19:34)
[2020-10-18] MEDS: SPIRIVA Respimat (tiotropium) 2.5 mcg/inh Inhaler INH SCH (08:51)
[2020-10-18 12:45] LABS: Calcium 9.5 mg/dL (8.6-10.3); EGFR Non-African American 90.1 (>60); Potassium 4.5 mmol/L (3.5-5.0)
[2020-10-19] MEDS: Iron Sucrose 200 MG in NS 0.9% 100 ml BAG 100 ML IVPB SCH (08:24)
[2020-10-19 08:55] LABS: ABS Lymphocytes 0.3 10^3/ul (1.0-4.8); ABS Monocytes 0.8 10^3/ul (0-0.8); ABS Neutrophils 9.7 10^3/ul (1.5-7.7); Eosinophil % 0.4 %; Hematocrit 31 % (35-47); Hemoglobin 9.3 g/dL (12.0-16.0); Lymphocyte % 2.8 %; Mean Corpuscular HGB Conc 30 g/dL (31-36); Mean Corpuscular Hemoglobin 22 pg (27-31); Mean Corpuscular Volume 74 fL (80-97); Mean Platelet Volume 9.4 fL (7.4-10.4); Platelet Count 146 10^3/uL (150-450); Red Blood Count 4.17 10^6 /uL (3.70-4.87); Red Cell Distribution Width 20 % (10-15); White Blood Count 10.8 10^3/uL (3.5-10.8)
[2020-10-19 09:20] LABS: Calcium 9.1 mg/dL (8.6-10.3); EGFR African American 147.6 (>60); Magnesium 1.7 mg/dL (1.9-2.7); Potassium 3.7 mmol/L (3.5-5.0)
[2020-10-19] MEDS ORDERED: Magnesium Sulfate 2 gm BAG 2 GM/50 ML BAG IVPB ONE (09:44)
[2020-10-19] MEDS: SPIRIVA Respimat (tiotropium) 2.5 mcg/inh Inhaler INH SCH (09:47)
[2020-10-19] MEDS: Mometasone/Formoter 100/5 MDI INH SCH ×2 (09:48→19:47)
[2020-10-19 10:21] LABS: Anisocytosis 2+; Hypochromasia 2+; Microcytosis 2+
[2020-10-19 11:06] LABS: TSH Ultra Thyroid Stim Horm 0.57 mcIU/mL (0.34-5.60)
[2020-10-20 06:52] LABS: Calcium 8.7 mg/dL (8.6-10.3); EGFR African American 117.3 (>60); Magnesium 1.9 mg/dL (1.9-2.7); Potassium 3.6 mmol/L (3.5-5.0)
[2020-10-20] MEDS: Mometasone/Formoter 100/5 MDI INH SCH ×2 (07:38→20:02)
[2020-10-20] MEDS: SPIRIVA Respimat (tiotropium) 2.5 mcg/inh Inhaler INH SCH (07:39)
[2020-10-20] MEDS: KCL 20 MEQ/100 ML IVPREMIX 20 MEQ/100 ML BAG IV SCH ×2 (10:20→12:03)
[2020-10-20 15:38] LABS: EGFR African American 126.9 (>60); EGFR Non-African American 104.9 (>60); Potassium 4.3 mmol/L (3.5-5.0)
[2020-10-20 17:45] LABS: Calcium 9.1 mg/dL (8.6-10.3); EGFR African American 107.1 (>60); EGFR Non-African American 88.5 (>60); Magnesium 1.9 mg/dL (1.9-2.7); Potassium 4.2 mmol/L (3.5-5.0)
[2020-10-20] MEDS ORDERED: Magnesium Sulfate IV 1GM/100ML 1 GM/100 ML BAG IV ONE (18:32)
[2020-10-21 05:51] LABS: EGFR African American 124.4 (>60); EGFR Non-African American 102.8 (>60); Potassium 3.8 mmol/L (3.5-5.0)
[2020-10-21] MEDS: Mometasone/Formoter 100/5 MDI INH SCH ×2 (07:44→21:15)
[2020-10-21] MEDS: SPIRIVA Respimat (tiotropium) 2.5 mcg/inh Inhaler INH SCH (07:44)
[2020-10-21 13:37] LABS: Digoxin 1.3 ng/ml (0.8-2.0)
[2020-10-22 06:15] LABS: CO2 Carbon Dioxide 33 mmol/L (22-32); Calcium 8.6 mg/dL (8.6-10.3); Chloride 107 mmol/L (101-111); Magnesium 2.9 mg/dL (1.9-2.7); Sodium 144 mmol/L (135-145)
[2020-10-22 06:21] LABS: Blood Urea Nitrogen 28 mg/dL (6-24); EGFR African American 119.6 (>60); EGFR Non-African American 98.8 (>60); Glucose 192 mg/dL (70-100)
[2020-10-22 06:24] LABS: Anion Gap 4 mmol/L (2-11)
[2020-10-22] MEDS: Mometasone/Formoter 100/5 MDI INH SCH ×2 (07:28→20:14)
[2020-10-22] MEDS: SPIRIVA Respimat (tiotropium) 2.5 mcg/inh Inhaler INH SCH (07:28)
[2020-10-22] MEDS: Iron Sucrose 200 MG in NS 0.9% 100 ml BAG 100 ML IVPB SCH (13:06)
[2020-10-23 06:05] LABS: Blood Urea Nitrogen 22 mg/dL (6-24); CO2 Carbon Dioxide 40 mmol/L (22-32); Calcium 8.2 mg/dL (8.6-10.3); Chloride 103 mmol/L (101-111); EGFR African American 144.3 (>60); EGFR Non-African American 119.2 (>60); Glucose 110 mg/dL (70-100); Magnesium 1.6 mg/dL (1.9-2.7); Potassium 4.3 mmol/L (3.5-5.0); Sodium 142 mmol/L (135-145)
[2020-10-23] MEDS ORDERED: Magnesium Sulfate 2 gm BAG 2 GM/50 ML BAG IVPB ONE (07:20)
[2020-10-23] MEDS: SPIRIVA Respimat (tiotropium) 2.5 mcg/inh Inhaler INH SCH (07:38)
[2020-10-23] MEDS: Mometasone/Formoter 100/5 MDI INH SCH ×2 (07:38→19:47)
[2020-10-24] MEDS: SPIRIVA Respimat (tiotropium) 2.5 mcg/inh Inhaler INH SCH (07:14)
[2020-10-24] MEDS: Mometasone/Formoter 100/5 MDI INH SCH ×2 (07:14→19:21)
[2020-10-24 09:37] LABS: CO2 Carbon Dioxide 31 mmol/L (22-32); Calcium 8.4 mg/dL (8.6-10.3); Chloride 105 mmol/L (101-111); Magnesium 1.9 mg/dL (1.9-2.7); Sodium 141 mmol/L (135-145)
[2020-10-24 09:42] LABS: Blood Urea Nitrogen 22 mg/dL (6-24); EGFR African American 141.1 (>60); EGFR Non-African American 116.6 (>60); Glucose 86 mg/dL (70-100)
[2020-10-24 09:43] LABS: Anion Gap 5 mmol/L (2-11)
[2020-10-24] MEDS ORDERED: Magnesium Sulfate IV 1GM/100ML 1 GM/100 ML BAG IV ONE (10:26)
[2020-10-24 11:12] LABS: Hematocrit 33 % (35-47); Hemoglobin 9.5 g/dL (12.0-16.0); Mean Corpuscular HGB Conc 29 g/dL (31-36); Mean Corpuscular Hemoglobin 22 pg (27-31); Mean Corpuscular Volume 77 fL (80-97); Mean Platelet Volume 9.8 fL (7.4-10.4); Platelet Count 132 10^3/uL (150-450); Red Blood Count 4.25 10^6 /uL (3.70-4.87); Red Cell Distribution Width 20 % (10-15); White Blood Count 11.1 10^3/uL (3.5-10.8)
[2020-10-24 11:13] LABS: ABS Lymphocytes 0.5 10^3/ul (1.0-4.8); ABS Monocytes 0.6 10^3/ul (0-0.8); Eosinophil % 0.4 %; Lymphocyte % 4.1 %
[2020-10-25] MEDS: Mometasone/Formoter 100/5 MDI INH SCH ×2 (07:37→20:48)
[2020-10-25] MEDS: SPIRIVA Respimat (tiotropium) 2.5 mcg/inh Inhaler INH SCH (07:37)
[2020-10-25 07:48] LABS: Blood Urea Nitrogen 23 mg/dL (6-24); CO2 Carbon Dioxide 36 mmol/L (22-32); Calcium 8.2 mg/dL (8.6-10.3); Chloride 106 mmol/L (101-111); EGFR African American 151.1 (>60); EGFR Non-African American 124.9 (>60); Glucose 87 mg/dL (70-100); Magnesium 1.9 mg/dL (1.9-2.7); Potassium 4.9 mmol/L (3.5-5.0); Sodium 142 mmol/L (135-145)
[2020-10-25] MEDS: Iron Sucrose 200 MG in NS 0.9% 100 ml BAG 100 ML IVPB SCH (12:25)
[2020-10-26 07:26] LABS: ABS Eosinophils 0.1 10^3/ul (0-0.6); ABS Lymphocytes 0.3 10^3/ul (1.0-4.8); ABS Monocytes 0.7 10^3/ul (0-0.8); ABS Neutrophils 8.1 10^3/ul (1.5-7.7); Eosinophil % 0.8 %; Hematocrit 28 % (35-47); Hemoglobin 8.5 g/dL (12.0-16.0); Lymphocyte % 3.8 %; Mean Corpuscular HGB Conc 31 g/dL (31-36); Mean Corpuscular Hemoglobin 24 pg (27-31); Mean Corpuscular Volume 76 fL (80-97); Mean Platelet Volume 9.8 fL (7.4-10.4); Platelet Count 108 10^3/uL (150-450); Red Blood Count 3.61 10^6 /uL (3.70-4.87); Red Cell Distribution Width 20 % (10-15); White Blood Count 9.2 10^3/uL (3.5-10.8)
[2020-10-26 07:45] LABS: Calcium 7.9 mg/dL (8.6-10.3); EGFR African American 132.2 (>60); EGFR Non-African American 109.3 (>60); Potassium 4.6 mmol/L (3.5-5.0)
[2020-10-26] MEDS: SPIRIVA Respimat (tiotropium) 2.5 mcg/inh Inhaler INH SCH (10:40)
[2020-10-26] MEDS: Mometasone/Formoter 100/5 MDI INH SCH (10:41)
[2020-10-26 13:42] VITALS: BP 100/50
== END 2020-10-26 16:10 | disposition swing bed (61) | DRG 208 ==
LOC: ED 05:44 → ICU 11:43 → SUATTDRO 11:51 → ICU 11:51 → MEDTELE 10-18 03:48
PROVIDERS: ADMIT Internal Medicine; ATTEND Internal Medicine

== ENCOUNTER 2020-12-08 09:42 | Inpatient (IN) ==
[2020-12-08] MEDS ORDERED: Pantoprazole VIAL 40 MG VIAL IV ONE (09:50)
[2020-12-08] MEDS ORDERED: Norepinephrine 16MCG/ML IVPRE 4,000 MCG/250 ML BAG IV ONE (09:55)
[2020-12-08] MEDS ORDERED: Rocuronium 50 mg VIAL 10 mg/ml 5 ml VIAL (50 mg) ONE (10:05)
[2020-12-08] MEDS ORDERED: Succinylcholine 200 mg VIAL 20 mg/ml 10 ml VIAL (200 mg) ONE (10:05)
[2020-12-08 10:06] LABS: PCO2 Arterial 51 mmHg (35-45); PO2 Arterial 160 mmHg (80-100)
[2020-12-08 10:13] LABS: Hematocrit 15 % (35-47); Hemoglobin 4.6 g/dL (12.0-16.0); Mean Corpuscular HGB Conc 31 g/dL (31-36); Mean Corpuscular Hemoglobin 29 pg (27-31); Mean Corpuscular Volume 96 fL (80-97); Red Blood Count 1.58 10^6 /uL (3.70-4.87); White Blood Count 12.7 10^3/uL (3.5-10.8)
[2020-12-08 10:16] LABS: Mean Platelet Volume 9.2 fL (7.4-10.4); Platelet Count 293 10^3/uL (150-450)
[2020-12-08 10:17] LABS: Activated Partial Thrombo Time 25.7 seconds (26.0-38.0); INR 1.43 (0.86-1.15)
[2020-12-08 10:21] LABS: ALT 175 U/L (7-52); AST 167 U/L (13-39); Albumin 3.5 g/dL (3.2-5.2); Albumin/Globulin Ratio 1.3 (1-3); Alkaline Phosphatase 59 U/L (35-149); Blood Urea Nitrogen 72 mg/dL (6-24); C Reactive Protein 12.53 mg/L (<8.01); CO2 Carbon Dioxide 30 mmol/L (22-32); Calcium 8.9 mg/dL (8.6-10.3); Chloride 101 mmol/L (101-111); Globulin 2.6 g/dL (2-4); Glucose 172 mg/dL (70-100); Sodium 141 mmol/L (135-145); Total Protein 6.1 g/dL (6.4-8.9)
[2020-12-08 10:24] LABS: Anion Gap 10 mmol/L (2-11); Troponin I 0.88 ng/mL (<0.03)
[2020-12-08 10:25] LABS: Potassium 6.2 mmol/L (3.5-5.0)
[2020-12-08] MEDS ORDERED: Dextrose 50% Syringe 50 ml 25 GM/50 ML SYRINGE IV PUSH ONE ×4 (10:25→23:16)
[2020-12-08] MEDS ORDERED: Calcium Gluconate 1 GM in NS 0.9% 50 ML 50 ML IV ONE (10:25)
[2020-12-08 10:36] LABS: ABS Lymphocytes 0.2 10^3/ul (1.0-4.8); ABS Monocytes 0.8 10^3/ul (0-0.8); ABS Neutrophils 11.7 10^3/ul (1.5-7.7); ABS Nucleated RBC 0.1 10^3/ul; Lymphocyte % 1.7 %; Nucleated Red Blood Cells % 0.4; Red Cell Distribution Width 24 % (10-15)
[2020-12-08 10:52] LABS: Creatine Kinase 679 U/L (10-223)
[2020-12-08] MEDS ORDERED: Norepinephrine 16MCG/ML IVPRE 4,000 MCG/250 ML BAG IV SCH ×2 (11:00→13:18)
[2020-12-08] MEDS ORDERED: Albuterol 2.5mg/3 ml (0.083%) NEB.SOLN INH PRN (11:10)
[2020-12-08 11:23] LABS: Anisocytosis 2+; Hypochromasia 2+; Polychromasia 2+
[2020-12-08 11:36] LABS: Rapid COVID-19 Molecular Undetected (Undetected)
[2020-12-08 11:36] LABS: Phosphorus 7.9 mg/dL (2.5-5.0)
[2020-12-08] MEDS ORDERED: Pantoprazole 80 mg in NS BAG 80 MG/250 ML BAG IV ONE (12:00)
[2020-12-08 12:02] LABS: Urine Appearance Cloudy; Urine Bilirubin Negative (Negative); Urine Blood Negative (Negative); Urine Color Amber; Urine Glucose Negative (Negative); Urine Ketones Negative (Negative); Urine Nitrite Negative (Negative); Urine Protein 2+(100 mg/dL) (Negative); Urine Specific Gravity 1.016 (1.002-1.030); Urine Urobilinogen Negative (Negative)
[2020-12-08 12:16] LABS: Urine Bacteria Absent (Absent); Urine Red Blood Cell Trace(0-2/hpf) (Absent); Urine Squamous Epithelial Cell Present (Absent); Urine White Blood Cell Trace(0-5/hpf) (Absent)
[2020-12-08 12:27] LABS: ABS Lymphocytes 0.2 10^3/ul (1.0-4.8); ABS Monocytes 1.1 10^3/ul (0-0.8); ABS Neutrophils 11.6 10^3/ul (1.5-7.7); ABS Nucleated RBC 0.1 10^3/ul; Eosinophil % 0.1 %; Hematocrit 24 % (35-47); Hemoglobin 7.8 g/dL (12.0-16.0); Lymphocyte % 1.8 %; Mean Corpuscular HGB Conc 32 g/dL (31-36); Mean Corpuscular Hemoglobin 30 pg (27-31); Mean Corpuscular Volume 94 fL (80-97); Mean Platelet Volume 9.1 fL (7.4-10.4); Nucleated Red Blood Cells % 0.4; Platelet Count 267 10^3/uL (150-450); Red Blood Count 2.61 10^6 /uL (3.70-4.87); Red Cell Distribution Width 19 % (10-15)
[2020-12-08] MEDS: Pantoprazole VIAL 40 MG VIAL IV SCH (13:45)
[2020-12-08] MEDS ORDERED: Albuterol 2.5mg/3 ml (0.083%) NEB.SOLN INH ONE (14:14)
[2020-12-08 17:04] LABS: Mean Platelet Volume 9.4 fL (7.4-10.4); Platelet Count 224 10^3/uL (150-450)
[2020-12-08] MEDS ORDERED: Albuterol/Ipratropium NEB.SOL (2.5/0.5 MG) 3 ML NEB.SOLN INH PRN (17:18)
[2020-12-08] MEDS ORDERED: Metoprolol Tartrate 5 mg VIAL 5 ml VIAL (1 mg/ml) IV PRN (17:19)
[2020-12-08 18:02] LABS: ABS Lymphocytes 0.3 10^3/ul (1.0-4.8); ABS Neutrophils 12.7 10^3/ul (1.5-7.7); ABS Nucleated RBC 0.1 10^3/ul; Eosinophil % 0.1 %; Hematocrit 32 % (35-47); Hemoglobin 10.4 g/dL (12.0-16.0); Lymphocyte % 2.3 %; Mean Corpuscular HGB Conc 33 g/dL (31-36); Mean Corpuscular Hemoglobin 30 pg (27-31); Mean Corpuscular Volume 93 fL (80-97); Nucleated Red Blood Cells % 0.7; Red Blood Count 3.44 10^6 /uL (3.70-4.87); Red Cell Distribution Width 18 % (10-15); White Blood Count 15.1 10^3/uL (3.5-10.8)
[2020-12-08 18:24] LABS: Blood Urea Nitrogen 69 mg/dL (6-24); Glucose 205 mg/dL (70-100)
[2020-12-08 18:25] LABS: Chloride 104 mmol/L (101-111); Sodium 139 mmol/L (135-145)
[2020-12-08 18:26] LABS: Calcium 8.5 mg/dL (8.6-10.3)
[2020-12-08 18:34] LABS: Potassium Redraw 6.4 mmol/L (3.5-5.0)
[2020-12-08] MEDS ORDERED: CALCIUM GLUCONATE 1GM/50ML NS 1 GM/50 ML BAG IV ONE (18:37)
[2020-12-08] MEDS ORDERED: Midazolam 10 mg/10 ml VIAL 1 mg/ml 10 ml VIAL (10 mg) ONE (18:50)
[2020-12-08] MEDS ORDERED: fentaNYL 100 mcg/2 ml 50 MCG/ML VIAL ONE (18:50)
[2020-12-08 19:55] LABS: Anion Gap 20 mmol/L (2-11); CO2 Carbon Dioxide 15 mmol/L (22-32)
[2020-12-08] MEDS: cefTRIAXone 1 gm/50 mL NS BAG 1 GM/50 ML BAG IVPB SCH (21:16)
[2020-12-08 22:20] LABS: CO2 Carbon Dioxide 27 mmol/L (22-32); Calcium 10.7 mg/dL (8.6-10.3); Chloride 104 mmol/L (101-111); Sodium 139 mmol/L (135-145)
[2020-12-08 22:25] LABS: Blood Urea Nitrogen 73 mg/dL (6-24); Glucose 190 mg/dL (70-100)
[2020-12-08 22:35] LABS: Digoxin 1.1 ng/ml (0.8-2.0)
[2020-12-08 22:51] LABS: Troponin I 1.88 ng/mL (<0.03)
[2020-12-08 23:13] LABS: Anion Gap 8 mmol/L (2-11); Potassium 5.5 mmol/L (3.5-5.0)
[2020-12-09 00:46] LABS: Potassium Redraw 5.7 mmol/L (3.5-5.0); Troponin I 2.16 ng/mL (<0.03)
[2020-12-09] MEDS: Pantoprazole VIAL 40 MG VIAL IV SCH ×2 (02:20→13:08)
[2020-12-09 06:27] LABS: ABS Basophils 0.1 10^3/ul (0-0.2); ABS Lymphocytes 0.2 10^3/ul (1.0-4.8); ABS Monocytes 1.3 10^3/ul (0-0.8); ABS Neutrophils 15.1 10^3/ul (1.5-7.7); ABS Nucleated RBC 0.1 10^3/ul; Hematocrit 33 % (35-47); Hemoglobin 10.7 g/dL (12.0-16.0); Lymphocyte % 1.2 %; Mean Corpuscular HGB Conc 33 g/dL (31-36); Mean Corpuscular Hemoglobin 30 pg (27-31); Mean Corpuscular Volume 92 fL (80-97); Mean Platelet Volume 9.2 fL (7.4-10.4); Nucleated Red Blood Cells % 0.4; Platelet Count 272 10^3/uL (150-450); Red Blood Count 3.56 10^6 /uL (3.70-4.87); Red Cell Distribution Width 19 % (10-15); White Blood Count 16.7 10^3/uL (3.5-10.8)
[2020-12-09 06:40] LABS: ALT 258 U/L (7-52); AST 163 U/L (13-39); Albumin 3.5 g/dL (3.2-5.2); Albumin/Globulin Ratio 1.2 (1-3); Alkaline Phosphatase 99 U/L (35-149); Blood Urea Nitrogen 76 mg/dL (6-24); CO2 Carbon Dioxide 25 mmol/L (22-32); Calcium 9.4 mg/dL (8.6-10.3); Chloride 104 mmol/L (101-111); Globulin 2.9 g/dL (2-4); Glucose 157 mg/dL (70-100); Magnesium 1.9 mg/dL (1.9-2.7); Phosphorus 6.7 mg/dL (2.5-5.0); Sodium 141 mmol/L (135-145); Total Protein 6.4 g/dL (6.4-8.9)
[2020-12-09 06:43] LABS: Anion Gap 12 mmol/L (2-11); Potassium 5.6 mmol/L (3.5-5.0)
[2020-12-09 06:44] LABS: Troponin I 2.53 ng/mL (<0.03)
[2020-12-09] MEDS ORDERED: NS 0.9% 1000 ml BAG 1,000 ML IV SCH (06:45)
[2020-12-09] MEDS ORDERED: Dextrose 50% Syringe 50 ml 25 GM/50 ML SYRINGE IV PUSH ONE (08:04)
[2020-12-09] MEDS ORDERED: Furosemide 100 mg/10 ml IV VIAL IV ONE ×2 (10:33→14:08)
[2020-12-09] MEDS ORDERED: SODIUM ZIRCONIUM CYCLOSILICATE 10 GM PACKET PO ONE (10:39)
[2020-12-09] MEDS ORDERED: NORMOSOL-R pH 7.4 1000 mL BAG 500 ML IV SCH (12:00)
[2020-12-09] MEDS ORDERED: Perflutren Lipid Microsphere 3 ML VIAL ONE (13:28)
[2020-12-09 13:30] LABS: Creatine Kinase 1871 U/L (10-223)
[2020-12-09 13:47] LABS: Blood Urea Nitrogen 80 mg/dL (6-24); CO2 Carbon Dioxide 28 mmol/L (22-32); Calcium 8.9 mg/dL (8.6-10.3); Chloride 104 mmol/L (101-111); Glucose 192 mg/dL (70-100); Sodium 142 mmol/L (135-145)
[2020-12-09 13:50] LABS: Anion Gap 10 mmol/L (2-11); Potassium 5.1 mmol/L (3.5-5.0)
[2020-12-09 13:51] LABS: Troponin I 1.95 ng/mL (<0.03)
[2020-12-09] MEDS: cefTRIAXone 1 gm/50 mL NS BAG 1 GM/50 ML BAG IVPB SCH (19:39)
[2020-12-10] MEDS: Pantoprazole VIAL 40 MG VIAL IV SCH ×2 (02:30→12:44)
[2020-12-10 06:12] LABS: Hematocrit 29 % (35-47); Hemoglobin 9.7 g/dL (12.0-16.0); Mean Corpuscular HGB Conc 33 g/dL (31-36); Mean Corpuscular Hemoglobin 31 pg (27-31); Mean Corpuscular Volume 93 fL (80-97); Mean Platelet Volume 9.3 fL (7.4-10.4); Platelet Count 186 10^3/uL (150-450); Red Blood Count 3.16 10^6 /uL (3.70-4.87); Red Cell Distribution Width 18 % (10-15); White Blood Count 9.3 10^3/uL (3.5-10.8)
[2020-12-10 06:26] LABS: Calcium 8.4 mg/dL (8.6-10.3); Magnesium 1.7 mg/dL (1.9-2.7); Phosphorus 5.7 mg/dL (2.5-5.0)
[2020-12-10] MEDS ORDERED: Magnesium Sulfate IV 3 GM in NS 0.9% 100 ml BAG 100 ML IVPB ONE (07:13)
[2020-12-10] MEDS ORDERED: NS 0.9% 100 ml BAG 100 ML ONE (07:42)
[2020-12-10] MEDS ORDERED: Furosemide 100 mg/10 ml IV VIAL IV SCH (09:00)
[2020-12-10] MEDS ORDERED: Lactated Ringers 1000 ml BAG 500 ML IV ONE (17:34)
[2020-12-10] MEDS: cefTRIAXone 1 gm/50 mL NS BAG 1 GM/50 ML BAG IVPB SCH (20:24)
[2020-12-10 21:53] LABS: Hematocrit 31 % (35-47)
[2020-12-11] MEDS: Pantoprazole VIAL 40 MG VIAL IV SCH ×2 (02:39→13:38)
[2020-12-11 07:17] LABS: Hematocrit 31 % (35-47); Hemoglobin 10.1 g/dL (12.0-16.0); Mean Corpuscular HGB Conc 33 g/dL (31-36); Mean Corpuscular Hemoglobin 31 pg (27-31); Mean Corpuscular Volume 93 fL (80-97); Mean Platelet Volume 9.6 fL (7.4-10.4); Platelet Count 184 10^3/uL (150-450); Red Blood Count 3.27 10^6 /uL (3.70-4.87); Red Cell Distribution Width 18 % (10-15); White Blood Count 7.1 10^3/uL (3.5-10.8)
[2020-12-11 07:40] LABS: Calcium 8.6 mg/dL (8.6-10.3); Magnesium 2.2 mg/dL (1.9-2.7); Phosphorus 3.9 mg/dL (2.5-5.0); Potassium 3.6 mmol/L (3.5-5.0)
[2020-12-11] MEDS: cefTRIAXone 1 gm/50 mL NS BAG 1 GM/50 ML BAG IVPB SCH (19:52)
[2020-12-12] MEDS: Pantoprazole VIAL 40 MG VIAL IV SCH ×2 (01:50→13:41)
[2020-12-12] MEDS ORDERED: Potassium Chlor 20 meq TAB.ER PO ONE ×2 (07:46→07:47)
[2020-12-12] MEDS: cefTRIAXone 1 gm/50 mL NS BAG 1 GM/50 ML BAG IVPB SCH (20:06)
[2020-12-13] MEDS: Pantoprazole VIAL 40 MG VIAL IV SCH ×2 (02:15→14:35)
[2020-12-13 09:46] LABS: Digoxin 0.7 ng/ml (0.8-2.0)
[2020-12-13 16:55] LABS: HDL Cholesterol 52.6 mg/dL
[2020-12-13] MEDS: cefTRIAXone 1 gm/50 mL NS BAG 1 GM/50 ML BAG IVPB SCH (20:31)
[2020-12-14] MEDS: Pantoprazole VIAL 40 MG VIAL IV SCH ×2 (01:58→14:13)
[2020-12-14 05:40] LABS: ABS Eosinophils 0.4 10^3/ul (0-0.6); ABS Lymphocytes 0.4 10^3/ul (1.0-4.8); ABS Monocytes 0.7 10^3/ul (0-0.8); ABS Neutrophils 6.3 10^3/ul (1.5-7.7); Eosinophil % 5.2 %; Hematocrit 36 % (35-47); Hemoglobin 11.1 g/dL (12.0-16.0); Lymphocyte % 5.7 %; Mean Corpuscular HGB Conc 31 g/dL (31-36); Mean Corpuscular Hemoglobin 30 pg (27-31); Mean Corpuscular Volume 96 fL (80-97); Mean Platelet Volume 8.7 fL (7.4-10.4); Platelet Count 194 10^3/uL (150-450); Red Blood Count 3.73 10^6 /uL (3.70-4.87); Red Cell Distribution Width 17 % (10-15); White Blood Count 7.8 10^3/uL (3.5-10.8)
[2020-12-14 05:58] LABS: Albumin 2.9 g/dL (3.2-5.2); Albumin/Globulin Ratio 1.1 (1-3); Calcium 8.8 mg/dL (8.6-10.3); Globulin 2.7 g/dL (2-4); Potassium 4.1 mmol/L (3.5-5.0); Total Bilirubin 0.6 mg/dL (0.2-1.0); Total Protein 5.6 g/dL (6.4-8.9)
[2020-12-14 13:43] LABS: Rapid COVID-19 Molecular Undetected (Undetected)
[2020-12-14 17:54] VITALS: BP 101/62
== END 2020-12-14 17:45 | DRG 377 ==
LOC: ED 09:42 → ICU 11:46 → MEDTELE 12-12 18:39
PROVIDERS: ADMIT Internal Medicine; ATTEND Internal Medicine

== ENCOUNTER 2021-02-17 23:45 | Inpatient (IN) ==
[2021-02-18 00:26] LABS: ABS Lymphocytes 0.6 10^3/ul (1.0-4.8); ABS Monocytes 0.6 10^3/ul (0-0.8); ABS Neutrophils 4.4 10^3/ul (1.5-7.7); Eosinophil % 0.5 %; Hematocrit 33 % (35-47); Hemoglobin 10.8 g/dL (12.0-16.0); Lymphocyte % 10.6 %; Mean Corpuscular HGB Conc 33 g/dL (31-36); Mean Corpuscular Hemoglobin 27 pg (27-31); Mean Corpuscular Volume 81 fL (80-97); Mean Platelet Volume 8.9 fL (7.4-10.4); Platelet Count 258 10^3/uL (150-450); Red Blood Count 4.06 10^6 /uL (3.70-4.87); Red Cell Distribution Width 19 % (10-15); White Blood Count 5.7 10^3/uL (3.5-10.8)
[2021-02-18] MEDS: NS 0.9% 1000 ml BAG 2,000 ML IV ONE ×2 (00:29→01:27)
[2021-02-18 00:44] LABS: ALT 9 U/L (7-52); AST 20 U/L (13-39); Activated Partial Thrombo Time 41.3 seconds (26.0-38.0); Albumin 3.4 g/dL (3.2-5.2); Albumin/Globulin Ratio 0.8 (1-3); Alkaline Phosphatase 65 U/L (35-149); Blood Urea Nitrogen 90 mg/dL (6-24); CO2 Carbon Dioxide 29 mmol/L (22-32); Calcium 8.9 mg/dL (8.6-10.3); Chloride 94 mmol/L (101-111); Globulin 4.4 g/dL (2-4); Glucose 117 mg/dL (70-100); INR 1.19 (0.86-1.15); Sodium 133 mmol/L (135-145); Total Protein 7.8 g/dL (6.4-8.9); eGFR CKD-EPI 19.8 (>60)
[2021-02-18 00:46] LABS: Anion Gap 10 mmol/L (2-11); Potassium 5.3 mmol/L (3.5-5.0)
[2021-02-18 00:53] LABS: Troponin I 0.07 ng/mL (<0.03)
[2021-02-18 01:06] LABS: LDH 334 U/L (140-271)
[2021-02-18 01:26] LABS: Ferritin 211.2 ng/mL (11-307)
[2021-02-18 04:49] LABS: Urine Appearance Turbid; Urine Bilirubin Negative (Negative); Urine Blood 2+ (Negative); Urine Color Amber; Urine Glucose Negative (Negative); Urine Ketones Negative (Negative); Urine Nitrite Negative (Negative); Urine Protein 2+(100 mg/dL) (Negative); Urine Urobilinogen Negative (Negative)
[2021-02-18 04:51] LABS: Urine Bacteria 1+ (Absent); Urine Red Blood Cell 3+(>10/hpf) (Absent); Urine Squamous Epithelial Cell Present (Absent); Urine White Blood Cell 3+(>20/hpf) (Absent)
[2021-02-18] MEDS ORDERED: Enoxaparin 40 MG/0.4 ML SYR SUBCUT SCH (05:00)
[2021-02-18] MEDS ORDERED: NS 0.9% 1000 ml BAG 1,000 ML IV ONE (05:05)
[2021-02-18] MEDS ORDERED: cefTRIAXone 1 gm/50 mL NS BAG 1 GM/50 ML BAG IV ONE (05:06)
[2021-02-18 07:18] LABS: CO2 Carbon Dioxide 20 mmol/L (22-32); Calcium 7.2 mg/dL (8.6-10.3); Chloride 109 mmol/L (101-111); Sodium 137 mmol/L (135-145)
[2021-02-18 07:21] LABS: Anion Gap 8 mmol/L (2-11)
[2021-02-18 07:24] LABS: Blood Urea Nitrogen 73 mg/dL (6-24); Glucose 96 mg/dL (70-100); eGFR CKD-EPI 28.8 (>60)
[2021-02-18 07:49] LABS: Troponin I 0.05 ng/mL (<0.03)
[2021-02-18 08:41] LABS: Potassium Redraw 4.5 mmol/L (3.5-5.0)
[2021-02-18] MEDS: Enoxaparin 30 MG/0.3 ML SYR SUBCUT SCH (09:47)
[2021-02-18] MEDS: Mometasone/Formoter 100/5 MDI INH SCH ×2 (09:47→19:33)
[2021-02-18] MEDS: SPIRIVA Respimat (tiotropium) 2.5 mcg/inh Inhaler INH SCH (09:48)
[2021-02-18] MEDS ORDERED: NS 0.9% 1000 ml BAG 1,000 ML IV SCH (13:45)
[2021-02-19] MEDS ORDERED: cefTRIAXone 1 gm/50 mL NS BAG 1 GM/50 ML BAG IVPB SCH (06:00)
[2021-02-19 06:50] LABS: ABS Eosinophils 0.1 10^3/ul (0-0.6); ABS Lymphocytes 0.4 10^3/ul (1.0-4.8); ABS Monocytes 0.3 10^3/ul (0-0.8); ABS Neutrophils 2.8 10^3/ul (1.5-7.7); Hematocrit 31 % (35-47); Hemoglobin 9.8 g/dL (12.0-16.0); Mean Corpuscular HGB Conc 31 g/dL (31-36); Mean Corpuscular Hemoglobin 26 pg (27-31); Mean Corpuscular Volume 83 fL (80-97); Mean Platelet Volume 8.5 fL (7.4-10.4); Nucleated Red Blood Cells % 0.1; Platelet Count 228 10^3/uL (150-450); Red Blood Count 3.76 10^6 /uL (3.70-4.87); Red Cell Distribution Width 19 % (10-15); White Blood Count 3.6 10^3/uL (3.5-10.8)
[2021-02-19] MEDS: Mometasone/Formoter 100/5 MDI INH SCH (07:07)
[2021-02-19] MEDS: SPIRIVA Respimat (tiotropium) 2.5 mcg/inh Inhaler INH SCH (07:08)
[2021-02-19 07:17] LABS: Calcium 8.5 mg/dL (8.6-10.3); Potassium 4.7 mmol/L (3.5-5.0); eGFR CKD-EPI 44.6 (>60)
[2021-02-19] MEDS: Enoxaparin 30 MG/0.3 ML SYR SUBCUT SCH (09:48)
[2021-02-19 12:06] VITALS: BP 102/47
== END 2021-02-19 18:45 | DRG 178 ==
LOC: ED 23:45 → EDHOLD 02-18 04:59 → SUATTDRO 02-18 04:59 → MED 02-18 14:48
PROVIDERS: ADMIT Internal Medicine; ATTEND Hospitalist